=== PATIENT | male | born 1975 | race Caucasian/White ===

== ENCOUNTER 2018-05-22 09:55 | Inpatient (IN) | payer OTHER ==
--- NOTE | 2018-05-14 19:32 | HP ---
HISTORY AND PHYSICAL: DATE OF ADMISSION/SURGERY: 05/22/18 DATE OF OFFICE VISIT: 05/12/18 SURGEON: Jewels Lynne MD * (DICTATED BY CHEKO DUMAS) PROCEDURE: Left total hip arthroplasty. CHIEF COMPLAINT: Left hip pain. HISTORY OF PRESENT ILLNESS: Mr. Faust is a 42-year-old gentleman with complaints of left hip pain. He failed conservative treatment and elected to proceed with a left total hip arthroplasty, which is scheduled for 05/22/18. PAST MEDICAL HISTORY: Psoriatic arthritis, depression, and sleep apnea. PAST SURGICAL HISTORY: Ear tubes. CURRENT MEDICATIONS: 1. Allopurinol 100 mg 2 tablets every day. 2. Hale 5/325 mg every 6 hours as needed. ALLERGIES: To HUMIRA and BEE STING. FAMILY HISTORY: Diabetes. SOCIAL HISTORY: This is a 42-year-old gentleman, lives with his spouse. He does not smoke, use drugs. Uses occasional alcohol. REVIEW OF SYSTEMS: A complete 14-point review of systems is reviewed with the patient. It was all negative or noncontributory. PHYSICAL EXAMINATION GENERAL: He is well developed, well nourished, in on acute distress. VITAL SIGNS: He stands 6 feet 1 inch tall, weighs 266 pounds. His blood pressure 140/82, his heart rate 68. HEENT: Normocephalic, atraumatic. NECK: Supple. No palpable lymph nodes. PULMONARY: The lungs are clear to auscultation bilaterally. CARDIO: Regular rate and rhythm. Strong S1 and S2. ABDOMEN: Soft, nontender, nondistended. MUSCULOSKELETAL: Left lower extremity, the skin is intact. There is no open wounds or abrasions. He walks with an antalgic-type gait favoring his left hip. He has decreased internal and external rotation of the left hip. He has 2 + dorsalis pedis pulse. Intact sensation. His lower extremity muscle group strengths are intact at 5/5. NEUROLOGICAL: He is alert and oriented x3. ASSESSMENT AND PLAN: Mr. Faust is a 42-year-old gentleman with end-stage osteoarthritis of the left hip. He failed conservative treatment and elected to proceed with a left total hip arthroplasty. The surgery is scheduled for with Dr. Lynne. Dr. Lynne discussed the risks and benefits of the surgery at today's visit and all of his questions were answered. He will follow with Dr. Lynne 2 weeks after the surgery. CHEKO DUMAS [id number]/CPS #: [id number] MTDD
[~2018-05-22 09:55] MED LIST: Buffered Lidocaine 0.9% SYRIN* 5 ML/SYR SYRINGE INTRADERM ONE; Sodium Citrate/Citric Acid* 15 ML UDC PO ONE
--- OUTSIDE RECORDS SUMMARY | 2018-05-22 10:01 | XMS REPORT ---
:1975 External Reference #:[id number] Author Organization [facility] Address [address] [facility] [place] [address] Phone [phone] Care Team Providers Name Role Phone Caleb Arredondo MD Primary Care Physician Unavailable Payers Type Date Identification Numbers Payment Provider Subscriber Commercial Policy Number: [id number] [employer] Niall E Govind PayID: [id number] [address] [address] [place] [address] Commercial Expires: 2018 Policy Number: [employer] Niall Campos Govind [id number] PayID: [id number] [address] [address] [place] [address] Problems Date Description Provider Status Onset: 08/11/2015 Psoriatic dactylitis Horacio Arredondo M.D. Active Onset: 08/11/2015 Psoriasis Horacio Arredondo M.D. Active Onset: 08/11/2015 Taking medication Horacio Arredondo M.D. Active Onset: 08/11/2015 Elevated levels of transaminase & lactic Horacio Arredondo M.D. Active acid dehydrogenase Onset: 08/11/2015 Tinnitus, bilateral Horacio Arredondo M.D. 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 Onset: 03/17/2018 Joint pain in right hand Jewels Lynne M.D. 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 [employer] Use Rarely consumes alcohol Smoking Patient is a former smoker quit in 2011 Exercise Type/Frequency Exercises sporadically Allergies, Adverse Reactions, Alerts Date Description Reaction Status Severity Comments 08/11/2015 Bee Sting swelling active Moderate 08/11/2015 Humira multiple infections active Severe 08/11/2015 NKDA inactive Medications Medication Date Status Form Strength Qnty SIG Indications Ordering Provider Allopurinol 05/05 Active Tablets 300mg 90tab 1 by mouth M10.9 s every day [facility], [facility] Simponi 03/07 Active Solution 50mg/0.5M 1.5un on hold until L40.59 Auto-Inje L its after [facility], ct surgery-----inj [facility] ect 50mg subcutaneously once monthly Hydrocodone-Ac 00 Active Tablets 5-325mg Take 1 Tablet Unknown etaminophen /0000 Every 6 Hours as Needed For Pain Allopurinol 03/04 Hx Tablets 100mg take three tabs M10.9 daily [facility], - [facility] 05/05 Bupropion HCL 07/26 Hx Tablets 150mg 30tab 1 by mouth G89.4 Zsofia ER (SR) /2016 ER 12HR s every day [facility], - [facility] 03/16 Sulfasalazine 05/17 Hx Tablets 500mg 90tab take 1 tablet L40.59 s by mouth twice [facility], - a day [facility] 03/16 Allopurinol 05/17 Hx Tablets 300mg 90tab 1 by mouth M10.9 ofi s every day in [facility], - additon to 100 [facility] / mg/day tab Allopurinol 05/17 Hx Tablets 100mg 90tab 1 by mouth M10.9 Zsofi s every day in [facility], - addition to 300 [facility] 07/10 mg tab /2017 Bupropion HCL 03/18 Hx Tablets 75mg 30tab 1 by mouth G89.4 Zsofi s every day [facility], - [facility] 07/26 Duloxetine HCL 12/[address] 30mg 30cap 1 by mouth G89.4 ofi Part s every day [facility], - [facility] 03/18 Allopurinol 10/05 Hx Tablets 300mg 90tab 1 by mouth M10.9 Zsofi s every day [facility], - [facility] 05/17 L40.59 Allopurinol 07/17/2016 - Hx Tablets 100mg 90tabs 1 by mouth every M10.9 Zsofia 10/05/2016 day fro 4 weeks [facility], then get labs [facility] and increase to 2 tabs/day Colchicine 07/17/2016 - Hx Tablets 0.6mg 12tabs take 1 tab at M10.9 Zsofia 03/03/2018 onset of gout [place], attack, 1 tab 1 [facility] hour later, may take 3rd dose 6 after last dose Methotrexate 05/22/2016 - Hx Tablets 2.5mg 36tabs 3 tbs by mouth L40.59 Zsofia 05/17/2017 every week On [place], Hold [facility] Folic Acid 05/22/2016 - Hx Tablets 1mg 90tabs 1 by mouth every Z79.899 Zsofia 05/17/2017 day (hold) [place], [facility] Voltaren 01/04/2016 - Hx Gel 1% 1tubes apply 2 grams to L40.59 ofia 03/16/2018 affected area [place], twice a day, as [facility] SPECIALIST needed for pain Enbrel 10/06/2015 - Hx Solution 50mg/ml 4units inject L40.59 Zsofia Sureclick 03/07/2016 Auto-Injec subcutaneously [place], t 50mg every week [facility] Enbrel 08/11/2015 - Hx Solution 50mg/ml 4units inject L40.59 Horacio [employer] 08/11/2015 Auto-Injec subcutaneously Endo, t 50mg every week M.D. Enbrel 08/11/2015 - Hx Solution 50mg/ml 4units inject L40.59 Horacio [employer] 10/06/2015 Auto-Injec subcutaneously Endo, t 50mg every week M.D. Ibuprofen - Hx Capsules 200mg as needed Unknown 03/16/2018 Trazamine - Hx Misc 50mg take 1/2 by Unknown 10/06/2015 mouth every night at bedtime Trazodone HCL - Hx Tablets 50mg 1 tablet at Unknown 03/16/2018 bedtime as needed Immunizations CPT Code Status Date Vaccine Reaction Lot # [id number] Given 05/17/2017 Influenza Virus Vaccine, no immediate reaction [id number] Quadrivalent, Split, noted Preservative Free [id number] Given 05/22/2016 Influenza Virus Vaccine, No reaction noted [id number] Quadrivalent, Split, Preservative Free [id number] Given 03/07/2016 Pneumococcal Conjugate [id number] Vaccine 13 Valent For Intramuscular Use [id number] Given 08/11/2015 Influenza Virus Vaccine, [id number] Quadrivalent, Split, Preservative Free Vital Signs Date Vital Result Comment 05/08/2018 Height 73 inches 6'1" Weight 267.00 lb Heart Rate 74 /min BP Systolic Sitting 124 mmHg BP Diastolic Sitting 80 mmHg Respiratory Rate 16 /min Body Temperature 97.6 F tympanic O2 % BldC Oximetry 98 % on Ra BMI (Body Mass Index) 35.2 kg/m2 05/05/2018 Height 73 inches 6'1" Weight 265.00 lb Heart Rate 86 /min BP Systolic Sitting 122 mmHg BP Diastolic Sitting 82 mmHg O2 % BldC Oximetry 96 % BMI (Body Mass Index) 35.0 kg/m2 04/11/2018 Height 73 inches 6'1" Weight 250.00 lb Heart Rate 88 /min BP Systolic 134 mmHg BP Diastolic 80 mmHg BMI (Body Mass Index) 33.0 kg/m2 03/17/2018 Height 73 inches 6'1" Weight 257.00 lb BP Systolic 148 mmHg BP Diastolic 82 mmHg Respiratory Rate 18 /min Body Temperature 97.2 F Pain Level 8 BMI (Body Mass Index) 33.9 kg/m2 03/03/2018 Height 73 inches 6'1" Weight 257.00 lb Heart Rate 80 /min BP Systolic Sitting 130 mmHg BP Diastolic Sitting 80 mmHg Pain Level 8 O2 % BldC Oximetry 97 % BMI (Body Mass Index) 33.9 kg/m2 10/08/2017 Weight 277.00 lb Heart Rate 87 /min BP Systolic Sitting 138 mmHg BP Diastolic Sitting 88 mmHg Pain Level 7 O2 % BldC Oximetry 97 % 07/26/2017 Height 73 inches 6'1" Weight 286.00 lb Heart Rate 80 /min BP Systolic Sitting 130 mmHg BP Diastolic Sitting 80 mmHg Respiratory Rate 14 /min Pain Level 6 BMI (Body Mass Index) 37.7 kg/m2 05/17/2017 Height 73 inches 6'1" Weight 287.00 lb Heart Rate 78 /min BP Systolic Sitting 150 mmHg BP Diastolic Sitting 94 mmHg Respiratory Rate 14 /min Pain Level 7 BMI (Body Mass Index) 37.9 kg/m2 03/18/2017 Height 73 inches 6'1" Weight 286.00 lb Heart Rate 86 /min BP Systolic 126 mmHg BP Diastolic 78 mmHg Body Temperature 98.0 F Pain Level 7 O2 % BldC Oximetry 96 % BMI (Body Mass Index) 37.7 kg/m2 12/07/2016 Height 73 inches 6'1" Weight 277.00 lb Heart Rate 81 /min BP Systolic Sitting 140 mmHg BP Diastolic Sitting 83 mmHg Respiratory Rate 14 /min Pain Level 6 BMI (Body Mass Index) 36.5 kg/m2 10/05/2016 Height 73 inches 6'1" Weight 276.00 lb Heart Rate 80 /min BP Systolic Sitting 130 mmHg BP Diastolic Sitting 80 mmHg Respiratory Rate 14 /min Body Temperature 97.6 F Pain Level 7 BMI (Body Mass Index) 36.4 kg/m2 07/17/2016 Height 73 inches 6'1" Weight 280.00 lb Heart Rate 76 /min BP Systolic Sitting 120 mmHg BP Diastolic Sitting 78 mmHg Body Temperature 97.7 F Pain Level 6 BMI (Body Mass Index) 36.9 kg/m2 07/02/2016 Height 73 inches 6'1" Weight 282.00 lb Pain Level 2 BMI (Body Mass Index) 37.2 kg/m2 05/22/2016 Height 73 inches 6'1" Weight 276.00 lb Heart Rate 80 /min BP Systolic Sitting 130 mmHg BP Diastolic Sitting 70 mmHg Respiratory Rate 14 /min Body Temperature 98.2 F Pain Level 7 BMI (Body Mass Index) 36.4 kg/m2 03/26/2016 Height 73 inches 6'1" Weight 279.00 lb Pain Level 2 BMI (Body Mass Index) 36.8 kg/m2 03/07/2016 Height 73 inches 6'1" Weight 279.00 lb Heart Rate 80 /min BP Systolic Sitting 124 mmHg BP Diastolic Sitting 74 mmHg Body Temperature 98.0 F Pain Level 8 BMI (Body Mass Index) 36.8 kg/m2 01/11/2016 Height 73 inches 6'1" Weight 273.00 lb Heart Rate 83 /min BP Systolic 133 mmHg BP Diastolic 85 mmHg BMI (Body Mass Index) 36.0 kg/m2 01/04/2016 Height 72.5 inches 6'0.50" Weight 277.00 lb Heart Rate 80 /min BP Systolic Sitting 156 mmHg BP Diastolic Sitting 90 mmHg Respiratory Rate 14 /min Body Temperature 98.3 F Pain Level 7 BMI (Body Mass Index) 37.0 kg/m2 10/06/2015 Height 72.5 inches 6'0.50" Weight 275.00 lb Heart Rate 84 /min BP Systolic Sitting 160 mmHg BP Diastolic Sitting 90 mmHg Respiratory Rate 14 /min Pain Level 8 BMI (Body Mass Index) 36.8 kg/m2 08/11/2015 Height 72.5 inches 6'0.50" Weight 278.50 lb Heart Rate 80 /min BP Systolic Sitting 142 mmHg BP Diastolic Sitting 92 mmHg Body Temperature 98.1 F Pain Level 6 BMI (Body Mass Index) 37.2 kg/m2 Results Test Date Test Result H/L Range Note Order 05/08/2018 EKG <pending> CBC Auto Diff 03/03/2018 White Blood Count 5.9 10^3/uL 3.5-10.8 Red Blood Count 5.33 10^6/uL 4.00-5.40 Hemoglobin 15.9 g/dL 14.0-18.0 Hematocrit 46 % 42-52 Mean Corpuscular Volume 87 fL 80-94 Mean Corpuscular Hemoglobin 30 pg 27-31 Mean Corpuscular HGB Conc 34 g/dL 31-36 Red Cell Distribution Width 13 % 10.5-15 Platelet Count 138 10^3/uL Low 150-450 Mean Platelet Volume 9.7 um3 7.4-10.4 Abs Neutrophils 3.8 10^3/uL 1.5-7.7 Abs Lymphocytes 1.6 10^3/uL 1.0-4.8 Abs Monocytes 0.4 10^3/uL 0-0.8 Abs Eosinophils 0.1 10^3/uL 0-0.6 Abs Basophils 0 10^3/uL 0-0.2 Abs Nucleated RBC 0.1 10^3/uL Granulocyte % 63.7 % 38-83 Lymphocyte % 26.4 % 25-47 Monocyte % 7.6 % High 0-7 Eosinophil % 1.5 % 0-6 Basophil % 0.8 % 0-2 Nucleated Red Blood Cells % 0.9 Comp Metabolic Panel 03/03/2018 Sodium 141 mmol/L 135-145 Potassium 4.1 mmol/L 3.5-5.0 Chloride 106 mmol/L 101-111 Co2 Carbon Dioxide 26 mmol/L 22-32 Anion Gap 9 mmol/L 2-11 Glucose 97 mg/dL 70-100 Blood Urea Nitrogen 14 mg/dL 6-24 Creatinine 1.10 mg/dL 0.67-1.17 BUN/Creatinine Ratio 12.7 8-20 Calcium 9.2 mg/dL 8.6-10.3 Total Protein 6.8 g/dL 6.4-8.9 Albumin 4.5 g/dL 3.2-5.2 Globulin 2.3 g/dL 2-4 Albumin/Globulin Ratio 2.0 1-3 Total Bilirubin 0.90 mg/dL 0.2-1.0 Alkaline Phosphatase 59 U/L 34-104 Alt 27 U/L 7-52 Ast 20 U/L 13-39 Egfr Non- 72.7 >60 Egfr 88.0 >60 1 Laboratory test finding 03/03/2018 C Reactive Protein 2.25 mg/L <8.01 Erythrocyte Sed Rate 6 mm/Hr 0-14 Uric Acid 7.9 mg/dL High 4.4-7.6 CBC Auto Diff 07/23/2017 White Blood Count 6.2 10^3/uL 3.5-10.8 Red Blood Count 5.35 10^6/uL 4.0-5.4 Hemoglobin 16.2 g/dL 14.0-18.0 Hematocrit 48 % 42-52 Mean Corpuscular Volume 89 fL 80-94 Mean Corpuscular Hemoglobin 30 pg 27-31 Mean Corpuscular HGB Conc 34 g/dL 31-36 Red Cell Distribution Width 14 % 10.5-15 Platelet Count 157 10^3/uL 150-450 Mean Platelet Volume 10 um3 7.4-10.4 Abs Neutrophils 3.7 10^3/uL 1.5-7.7 Abs Lymphocytes 2.0 10^3/uL 1.0-4.8 Abs Monocytes 0.5 10^3/uL 0-0.8 Abs Eosinophils 0 10^3/uL 0-0.6 Abs Basophils 0 10^3/uL 0-0.2 Abs Nucleated RBC 0.01 10^3/uL Granulocyte % 59.7 % 38-83 Lymphocyte % 32.2 % 25-47 Monocyte % 7.6 % 1-9 Eosinophil % 0 % 0-6 Basophil % 0.5 % 0-2 Nucleated Red Blood Cells % 0.2 Comp Metabolic Panel 07/23/2017 Sodium 138 mmol/L 133-145 Potassium 3.8 mmol/L 3.5-5.0 Chloride 103 mmol/L 101-111 Co2 Carbon Dioxide 28 mmol/L 22-32 Anion Gap 7 mmol/L 2-11 Glucose 106 mg/dL High 70-100 Blood Urea Nitrogen 17 mg/dL 6-24 Creatinine 1.13 mg/dL 0.67-1.17 BUN/Creatinine Ratio 15.0 8-20 Calcium 8.8 mg/dL 8.6-10.3 Total Protein 6.7 g/dL 6.4-8.9 Albumin 4.5 g/dL 3.2-5.2 Globulin 2.2 g/dL 2-4 Albumin/Globulin Ratio 2.0 1-3 Total Bilirubin 0.70 mg/dL 0.2-1.0 Alkaline Phosphatase 64 U/L 34-104 Alt 45 U/L 7-52 Ast 30 U/L 13-39 Egfr Non- 70.8 >60 Egfr 91.1 >60 2 Laboratory test finding 07/23/2017 C Reactive Protein 1.67 mg/L < 5.00 3 Erythrocyte Sed Rate 2 mm/Hr 0-14 CBC Auto Diff 05/14/2017 White Blood Count 5.7 10^3/uL 3.5-10.8 Red Blood Count 5.07 10^6/uL 4.0-5.4 Hemoglobin 15.4 g/dL 14.0-18.0 Hematocrit 45 % 42-52 Mean Corpuscular Volume 89 fL 80-94 Mean Corpuscular Hemoglobin 30 pg 27-31 Mean Corpuscular HGB Conc 34 g/dL 31-36 Red Cell Distribution Width 13 % 10.5-15 Platelet Count 150 10^3/uL 150-450 Mean Platelet Volume 9 um3 7.4-10.4 Abs Neutrophils 3.3 10^3/uL 1.5-7.7 Abs Lymphocytes 1.9 10^3/uL 1.0-4.8 Abs Monocytes 0.4 10^3/uL 0-0.8 Abs Eosinophils 0.1 10^3/uL 0-0.6 Abs Basophils 0 10^3/uL 0-0.2 Abs Nucleated RBC 0 10^3/uL Granulocyte % 58.0 % 38-83 Lymphocyte % 32.9 % 25-47 Monocyte % 6.7 % 1-9 Eosinophil % 1.8 % 0-6 Basophil % 0.6 % 0-2 Nucleated Red Blood Cells % 0 Comp Metabolic Panel 05/14/2017 Sodium 139 mmol/L 133-145 Potassium 3.8 mmol/L 3.5-5.0 Chloride 106 mmol/L 101-111 Co2 Carbon Dioxide 27 mmol/L 22-32 Anion Gap 6 mmol/L 2-11 Glucose 73 mg/dL 70-100 Blood Urea Nitrogen 14 mg/dL 6-24 Creatinine 1.09 mg/dL 0.67-1.17 BUN/Creatinine Ratio 12.8 8-20 Calcium 8.9 mg/dL 8.6-10.3 Total Protein 6.6 g/dL 6.4-8.9 Albumin 4.3 g/dL 3.2-5.2 Globulin 2.3 g/dL 2-4 Albumin/Globulin Ratio 1.9 1-3 Total Bilirubin 0.70 mg/dL 0.2-1.0 Alkaline Phosphatase 65 U/L 34-104 Alt 41 U/L 7-52 Ast 26 U/L 13-39 Egfr Non- 73.8 >60 Egfr 95.0 >60 4 Laboratory test finding 05/14/2017 C Reactive Protein 2.89 mg/L < 5.00 5 Erythrocyte Sed Rate 4 mm/Hr 0-14 6 Uric Acid 6.9 mg/dL 4.4-7.6 7 Comp Metabolic Panel 02/21/2017 Sodium 138 mmol/L 133-145 Potassium 4.3 mmol/L 3.5-5.0 Chloride 105 mmol/L 101-111 Co2 Carbon Dioxide 29 mmol/L 22-32 Anion Gap 4 mmol/L 2-11 Glucose 97 mg/dL 70-100 Blood Urea Nitrogen 10 mg/dL 6-24 Creatinine 1.06 mg/dL 0.67-1.17 BUN/Creatinine Ratio 9.4 8-20 Calcium 9.0 mg/dL 8.6-10.3 Total Protein 6.7 g/dL 6.4-8.9 Albumin 4.5 g/dL 3.2-5.2 Globulin 2.2 g/dL 2-4 Albumin/Globulin Ratio 2.0 1-3 Total Bilirubin 0.90 mg/dL 0.2-1.0 Alkaline Phosphatase 73 U/L 34-104 Alt 68 U/L High 7-52 Ast 37 U/L 13-39 Egfr Non- 76.3 >60 Egfr 98.1 >60 8 Laboratory test finding 02/21/2017 Uric Acid 6.6 mg/dL 4.4-7.6 9 C Reactive Protein 1.31 mg/L < 5.00 10 CBC Auto Diff 02/21/2017 White Blood Count 5.7 10^3/uL 3.5-10.8 Red Blood Count 5.35 10^6/uL 4.0-5.4 Hemoglobin 16.7 g/dL 14.0-18.0 Hematocrit 49 % 42-52 Mean Corpuscular Volume 91 fL 80-94 Mean Corpuscular Hemoglobin 31 pg 27-31 Mean Corpuscular HGB Conc 34 g/dL 31-36 Red Cell Distribution Width 14 % 10.5-15 Platelet Count 135 10^3/uL Low 150-450 Mean Platelet Volume 9 um3 7.4-10.4 Abs Neutrophils 3.3 10^3/uL 1.5-7.7 Abs Lymphocytes 1.9 10^3/uL 1.0-4.8 Abs Monocytes 0.4 10^3/uL 0-0.8 Abs Eosinophils 0.1 10^3/uL 0-0.6 Abs Basophils 0 10^3/uL 0-0.2 Abs Nucleated RBC 0.01 10^3/uL Granulocyte % 58.6 % 38-83 Lymphocyte % 32.8 % 25-47 Monocyte % 6.4 % 1-9 Eosinophil % 1.8 % 0-6 Basophil % 0.4 % 0-2 Nucleated Red Blood Cells % 0.2 Laboratory test finding 02/21/2017 Erythrocyte Sed Rate 3 mm/Hr 0-14 11 CBC Auto Diff 11/27/2016 White Blood Count 4.5 10^3/uL 3.5-10.8 Red Blood Count 5.14 10^6/uL 4.0-5.4 Hemoglobin 15.6 g/dL 14.0-18.0 Hematocrit 46 % 42-52 Mean Corpuscular Volume 89 fL 80-94 Mean Corpuscular Hemoglobin 30 pg 27-31 Mean Corpuscular HGB Conc 34 g/dL 31-36 Red Cell Distribution Width 13 % 10.5-15 Platelet Count 132 10^3/uL Low 150-450 Mean Platelet Volume 10 um3 7.4-10.4 Abs Neutrophils 2.7 10^3/uL 1.5-7.7 Abs Lymphocytes 1.4 10^3/uL 1.0-4.8 Abs Monocytes 0.2 10^3/uL 0-0.8 Abs Eosinophils 0.1 10^3/uL 0-0.6 Abs Basophils 0 10^3/uL 0-0.2 Abs Nucleated RBC 0 10^3/uL Granulocyte % 61.0 % 38-83 Lymphocyte % 31.7 % 25-47 Monocyte % 4.9 % 1-9 Eosinophil % 1.7 % 0-6 Basophil % 0.7 % 0-2 Nucleated Red Blood Cells % 0.1 Comp Metabolic Panel 11/27/2016 Sodium 139 mmol/L 133-145 Potassium 3.7 mmol/L 3.5-5.0 Chloride 104 mmol/L 101-111 Co2 Carbon Dioxide 28 mmol/L 22-32 Anion Gap 7 mmol/L 2-11 Glucose 164 mg/dL High 70-100 Blood Urea Nitrogen 9 mg/dL 6-24 Creatinine 1.10 mg/dL 0.67-1.17 BUN/Creatinine Ratio 8.2 8-20 Calcium 8.8 mg/dL 8.6-10.3 Total Protein 6.4 g/dL 6.4-8.9 Albumin 4.2 g/dL 3.2-5.2 Globulin 2.2 g/dL 2-4 Albumin/Globulin Ratio 1.9 1-3 Total Bilirubin 0.90 mg/dL 0.2-1.0 Alkaline Phosphatase 79 U/L 34-104 Alt 71 U/L High 7-52 Ast 37 U/L 13-39 Egfr Non- 73.4 >60 Egfr 94.4 >60 12 Laboratory test finding 11/27/2016 C Reactive Protein 1.32 mg/L < 5.00 13 Erythrocyte Sed Rate 1 mm/Hr 0-14 14 Laboratory test finding 11/27/2016 Uric Acid 5.3 mg/dL 4.4-7.6 15 Laboratory test finding 10/03/2016 Uric Acid 8.1 mg/dL High 4.4-7.6 16 CBC Auto Diff 10/03/2016 White Blood Count 4.7 10^3/uL 3.5-10.8 Red Blood Count 5.15 10^6/uL 4.0-5.4 Hemoglobin 15.8 g/dL 14.0-18.0 Hematocrit 47 % 42-52 Mean Corpuscular Volume 91 fL 80-94 Mean Corpuscular Hemoglobin 31 pg 27-31 Mean Corpuscular HGB Conc 34 g/dL 31-36 Red Cell Distribution Width 13 % 10.5-15 Platelet Count 137 10^3/uL Low 150-450 Mean Platelet Volume 10 um3 7.4-10.4 Abs Neutrophils 3.0 10^3/uL 1.5-7.7 Abs Lymphocytes 1.2 10^3/uL 1.0-4.8 Abs Monocytes 0.2 10^3/uL 0-0.8 Abs Eosinophils 0.1 10^3/uL 0-0.6 Abs Basophils 0 10^3/uL 0-0.2 Abs Nucleated RBC 0 10^3/uL Granulocyte % 64.8 % 38-83 Lymphocyte % 26.7 % 25-47 Monocyte % 5.3 % 1-9 Eosinophil % 2.4 % 0-6 Basophil % 0.8 % 0-2 Nucleated Red Blood Cells % 0.1 Comp Metabolic Panel 10/03/2016 Sodium 137 mmol/L 133-145 Potassium 3.8 mmol/L 3.5-5.0 Chloride 104 mmol/L 101-111 Co2 Carbon Dioxide 28 mmol/L 22-32 Anion Gap 5 mmol/L 2-11 Glucose 150 mg/dL High 70-100 Blood Urea Nitrogen 14 mg/dL 6-24 Creatinine 1.15 mg/dL 0.67-1.17 BUN/Creatinine Ratio 12.2 8-20 Calcium 9.0 mg/dL 8.6-10.3 Total Protein 6.6 g/dL 6.4-8.9 Albumin 4.4 g/dL 3.2-5.2 Globulin 2.2 g/dL 2-4 Albumin/Globulin Ratio 2.0 1-3 Total Bilirubin 0.90 mg/dL 0.2-1.0 Alkaline Phosphatase 76 U/L 34-104 Alt 72 U/L High 7-52 Ast 44 U/L High 13-39 Egfr Non- 69.7 >60 Egfr 89.7 >60 17 Laboratory test finding 10/03/2016 C Reactive Protein 2.96 mg/L < 5.00 18 Erythrocyte Sed Rate 5 mm/Hr 0-14 19 Laboratory test finding 05/22/2016 Uric Acid 8.3 mg/dL High 4.4-7.6 20 CBC Auto Diff 05/22/2016 White Blood Count 4.9 10^3/uL 3.5-10.8 Red Blood Count 5.25 10^6/uL 4.0-5.4 Hemoglobin 16.0 g/dL 14.0-18.0 Hematocrit 47 % 42-52 Mean Corpuscular Volume 90 fL 80-94 Mean Corpuscular Hemoglobin 30 pg 27-31 Mean Corpuscular HGB Conc 34 g/dL 31-36 Red Cell Distribution Width 13 % 10.5-15 Platelet Count 134 10^3/uL Low 150-450 Mean Platelet Volume 9 um3 7.4-10.4 Abs Neutrophils 2.8 10^3/uL 1.5-7.7 Abs Lymphocytes 1.7 10^3/uL 1.0-4.8 Abs Monocytes 0.3 10^3/uL 0-0.8 Abs Eosinophils 0 10^3/uL 0-0.6 Abs Basophils 0 10^3/uL 0-0.2 Abs Nucleated RBC 0.01 10^3/uL Granulocyte % 57.9 % 38-83 Lymphocyte % 34.1 % 25-47 Monocyte % 6.4 % 1-9 Eosinophil % 1.0 % 0-6 Basophil % 0.6 % 0-2 Nucleated Red Blood Cells % 0.1 Comp Metabolic Panel 05/22/2016 Sodium 137 mmol/L 133-145 Potassium 3.8 mmol/L 3.5-5.0 Chloride 105 mmol/L 101-111 Co2 Carbon Dioxide 27 mmol/L 22-32 Anion Gap 5 mmol/L 2-11 Glucose 85 mg/dL 70-100 Blood Urea Nitrogen 14 mg/dL 6-24 Creatinine 1.14 mg/dL 0.67-1.17 BUN/Creatinine Ratio 12.3 8-20 Calcium 8.7 mg/dL 8.6-10.3 Total Protein 6.8 g/dL 6.4-8.9 Albumin 4.3 g/dL 3.2-5.2 Globulin 2.5 g/dL 2-4 Albumin/Globulin Ratio 1.7 1-3 Total Bilirubin 1.00 mg/dL 0.2-1.0 Alkaline Phosphatase 64 U/L 34-104 Alt 61 U/L High 7-52 Ast 31 U/L 13-39 Egfr Non- 70.4 >60 Egfr 90.6 >60 21 Laboratory test finding 05/22/2016 Erythrocyte Sed Rate 1 mm/Hr 0-14 22 C Reactive Protein 2.36 mg/L < 5.00 23 CBC W/Auto Diff 03/02/2016 White Blood Count 4.2 10^3/uL 3.5-10.8 Red Blood Count 5.19 10^6/uL 4.0-5.4 Hemoglobin 15.7 g/dL 14.0-18.0 Hematocrit 46 % 42-52 Mean Corpuscular Volume 90 fL 80-94 Mean Corpuscular Hemoglobin 30 pg 27-31 Mean Corpuscular HGB Conc 34 g/dL 31-36 Red Cell Distribution Width 13 % 10.5-15 Platelet Count 128 10^3/uL Low 150-450 Mean Platelet Volume 9 um3 7.4-10.4 Abs Neutrophils 2.2 10^3/uL 1.5-7.7 Abs Lymphocytes 1.7 10^3/uL 1.0-4.8 Abs Monocytes 0.3 10^3/uL 0-0.8 Abs Eosinophils 0.1 10^3/uL 0-0.6 Abs Basophils 0 10^3/uL 0-0.2 Abs Nucleated RBC 0 10^3/uL Granulocyte % 51.6 % 38-83 Lymphocyte % 39.7 % 25-47 Monocyte % 6.1 % 1-9 Eosinophil % 2.1 % 0-6 Basophil % 0.5 % 0-2 Nucleated Red Blood Cells % 0.1 CMP Panel 03/02/2016 Sodium 139 mmol/L 133-145 Potassium 4.1 mmol/L 3.5-5.0 Chloride 107 mmol/L 101-111 Co2 Carbon Dioxide 26 mmol/L 22-32 Anion Gap 6 mmol/L 2-11 Glucose 128 mg/dL High 70-100 Blood Urea Nitrogen 9 mg/dL 6-24 Creatinine 1.09 mg/dL 0.67-1.17 BUN/Creatinine Ratio 8.3 8-20 Calcium 9.1 mg/dL 8.6-10.3 Total Protein 6.3 g/dL Low 6.4-8.9 Albumin 4.2 g/dL 3.2-5.2 Globulin 2.1 g/dL 2-4 Albumin/Globulin Ratio 2.0 1-3 Total Bilirubin 0.90 mg/dL 0.2-1.0 Alkaline Phosphatase 73 U/L 34-104 Alt 58 U/L High 7-52 Ast 30 U/L 13-39 Egfr Non- 74.2 >60 Egfr 95.4 >60 24 Laboratory test finding 03/02/2016 C Reactive Protein 1.31 mg/L < 5.00 25 Erythrocyte Sed Rate 0 mm/Hr 0-14 26 Comp Metabolic Panel 12/21/2015 Sodium 138 mmol/L 133-145 Potassium 3.6 mmol/L 3.5-5.0 Chloride 103 mmol/L 101-111 Co2 Carbon Dioxide 29 mmol/L 22-32 Anion Gap 6 mmol/L 2-11 Glucose 122 mg/dL High 70-100 Blood Urea Nitrogen 11 mg/dL 6-24 Creatinine 1.21 mg/dL High 0.67-1.17 BUN/Creatinine Ratio 9.1 8-20 Calcium 9.1 mg/dL 8.6-10.3 Total Protein 6.9 g/dL 6.4-8.9 Albumin 4.8 g/dL 3.2-5.2 Globulin 2.1 g/dL 2-4 Albumin/Globulin Ratio 2.3 1-3 Total Bilirubin 1.00 mg/dL 0.2-1.0 Alkaline Phosphatase 66 U/L 34-104 Alt 82 U/L High 7-52 Ast 47 U/L High 13-39 Egfr Non- 65.8 >60 Egfr 84.6 >60 27 Laboratory test finding 12/21/2015 C Reactive Protein 1.79 mg/L < 5.00 28 CBC Auto Diff 12/21/2015 White Blood Count 4.6 10^3/uL 3.5-10.8 Red Blood Count 5.26 10^6/uL 4.0-5.4 Hemoglobin 16.3 g/dL 14.0-18.0 Hematocrit 47 % 42-52 Mean Corpuscular Volume 90 fL 80-94 Mean Corpuscular Hemoglobin 31 pg 27-31 Mean Corpuscular HGB Conc 35 g/dL 31-36 Red Cell Distribution Width 13 % 10.5-15 Platelet Count 145 10^3/uL Low 150-450 Mean Platelet Volume 9 um3 7.4-10.4 Abs Neutrophils 2.7 10^3/uL 1.5-7.7 Abs Lymphocytes 1.6 10^3/uL 1.0-4.8 Abs Monocytes 0.2 10^3/uL 0-0.8 Abs Eosinophils 0.1 10^3/uL 0-0.6 Abs Basophils 0 10^3/uL 0-0.2 Abs Nucleated RBC 0.01 10^3/uL Granulocyte % 58.8 % 38-83 Lymphocyte % 34.3 % 25-47 Monocyte % 5.3 % 1-9 Eosinophil % 1.1 % 0-6 Basophil % 0.5 % 0-2 Nucleated Red Blood Cells % 0.3 Laboratory test finding 12/21/2015 Erythrocyte Sed Rate 2 mm/Hr 0-14 CBC Auto Diff 09/12/2015 White Blood Count 4.8 10^3/uL 3.5-10.8 Red Blood Count 5.15 10^6/uL 4.0-5.4 Hemoglobin 16.1 g/dL 14.0-18.0 Hematocrit 48 % 42-52 Mean Corpuscular Volume 93 fL 80-94 Mean Corpuscular Hemoglobin 31 pg 27-31 Mean Corpuscular HGB Conc 34 g/dL 31-36 Red Cell Distribution Width 13 % 10.5-15 Platelet Count 155 10^3/uL 150-450 Mean Platelet Volume 9 um3 7.4-10.4 Abs Neutrophils 2.4 10^3/uL 1.5-7.7 Abs Lymphocytes 1.9 10^3/uL 1.0-4.8 Abs Monocytes 0.4 10^3/uL 0-0.8 Abs Eosinophils 0.1 10^3/uL 0-0.6 Abs Basophils 0 10^3/uL 0-0.2 Abs Nucleated RBC 0 10^3/uL Granulocyte % 50.1 % 38-83 Lymphocyte % 39.7 % 25-47 Monocyte % 7.3 % 1-9 Eosinophil % 2.0 % 0-6 Basophil % 0.9 % 0-2 Nucleated Red Blood Cells % 0 Comp Metabolic Panel 09/12/2015 Sodium 136 mmol/L 133-145 Potassium 3.7 mmol/L 3.5-5.0 Chloride 104 mmol/L 101-111 Co2 Carbon Dioxide 27 mmol/L 22-32 Anion Gap 5 mmol/L 2-11 Glucose 151 mg/dL High 70-100 Blood Urea Nitrogen 14 mg/dL 6-24 Creatinine 1.06 mg/dL 0.67-1.17 BUN/Creatinine Ratio 13.2 8-20 Calcium 9.1 mg/dL 8.6-10.3 Total Protein 6.9 g/dL 6.4-8.9 Albumin 4.6 g/dL 3.2-5.2 Globulin 2.3 g/dL 2-4 Albumin/Globulin Ratio 2.0 1-3 Total Bilirubin 0.80 mg/dL 0.2-1.0 Alkaline Phosphatase 77 U/L 34-104 Alt 54 U/L High 7-52 Ast 30 U/L 13-39 Egfr Non- 77.0 >60 Egfr 99.0 >60 29 Laboratory test finding 09/12/2015 C Reactive Protein 2.78 mg/L < 5.00 30 Erythrocyte Sed Rate 1 mm/Hr 0-14 CBC Auto Diff 08/11/2015 White Blood Count 5.6 10^3/uL 3.5-10.8 Red Blood Count 5.14 10^6/uL 4.0-5.4 Hemoglobin 16.0 g/dL 14.0-18.0 Hematocrit 48 % 42-52 Mean Corpuscular Volume 93 fL 80-94 Mean Corpuscular Hemoglobin 31 pg 27-31 Mean Corpuscular HGB Conc 33 g/dL 31-36 Red Cell Distribution Width 13 % 10.5-15 Platelet Count 148 10^3/uL Low 150-450 Mean Platelet Volume 10 um3 7.4-10.4 Abs Neutrophils 3.3 10^3/uL 1.5-7.7 Abs Lymphocytes 1.8 10^3/uL 1.0-4.8 Abs Monocytes 0.4 10^3/uL 0-0.8 Abs Eosinophils 0.1 10^3/uL 0-0.6 Abs Basophils 0 10^3/uL 0-0.2 Abs Nucleated RBC 0.01 10^3/uL Granulocyte % 58.2 % 38-83 Lymphocyte % 32.5 % 25-47 Monocyte % 7.6 % 1-9 Eosinophil % 1.3 % 0-6 Basophil % 0.4 % 0-2 Nucleated Red Blood Cells % 0.2 Comp Metabolic Panel 08/11/2015 Sodium 138 mmol/L 133-145 Potassium 3.8 mmol/L 3.5-5.0 Chloride 107 mmol/L 101-111 Co2 Carbon Dioxide 25 mmol/L 22-32 Anion Gap 6 mmol/L 2-11 Glucose 81 mg/dL 70-100 Blood Urea Nitrogen 13 mg/dL 6-24 Creatinine 1.06 mg/dL 0.67-1.17 BUN/Creatinine Ratio 12.3 8-20 Calcium 9.0 mg/dL 8.6-10.3 Total Protein 6.9 g/dL 6.4-8.9 Albumin 4.7 g/dL 3.2-5.2 Globulin 2.2 g/dL 2-4 Albumin/Globulin Ratio 2.1 1-3 Total Bilirubin 0.90 mg/dL 0.2-1.0 Alkaline Phosphatase 74 U/L 34-104 Alt 52 U/L 7-52 Ast 29 U/L 13-39 Egfr Non- 77.0 >60 Egfr 99.0 >60 31 Laboratory test finding 08/11/2015 C Reactive Protein 3.20 mg/L < 5.00 32 Erythrocyte Sed Rate 4 mm/Hr 0-14 Cytoplasmic Neutrophilic AB 08/11/2015 C-Anca Negative Negative P-Anca Negative Negative 33 Laboratory test finding 08/11/2015 Elyssa Screen Negative Negative 34 Quantiferon Gold TB 08/11/2015 M tuberculosis by Negative Negative Quantiferon Tuberculosis Antigen Value 0.01 IU/mL 35 Hepatitis Acute Panel 08/11/2015 Hepatitis C Antibody Nonreactive Nonreactive Hepatitis A AB Igm Nonreactive Nonreactive Hepatitis B Core AB Igm Nonreactive Nonreactive Hepatitis B Surface Ag Nonreactive Nonreactive Laboratory test finding 08/11/2015 Rheumatoid Factor <15 IU/mL <15 36 Cyclic Citrullinated Pep Igg <15.6 U 37 Uric Acid 7.9 mg/dL High 4.4-7.6 Hla B27 08/11/2015 Hla B27 Negative 38 Hla B27 Interp See Comment 39 1 Because ethnic data is not always readily available, this report includes an eGFR for both -Americans and non- Americans. The National Kidney Disease Education Program (NKDEP) does not endorse the use of the MDRD equation for patients that are not between the ages of 18 and 70, are , have extremes of body size, muscle mass, or nutritional status, or are non- or non-. According to the National Kidney Foundation, irrespective of diagnosis, the stage of the disease is based on the level of kidney function: Stage Description GFR(mL/min/1.73 m(2)) 1 Kidney damage with normal or decreased GFR 90 2 Kidney damage with mild decrease in GFR 60-89 3 Moderate decrease in GFR 30-59 4 Severe decrease in GFR 15-29 5 Kidney failure <15 (or dialysis) 2 Because ethnic data is not always readily available, this report includes an eGFR for both -Americans and non- Americans. The National Kidney Disease Education Program (NKDEP) does not endorse the use of the MDRD equation for patients that are not between the ages of 18 and 70, are , have extremes of body size, muscle mass, or nutritional status, or are non- or non-. According to the National Kidney Foundation, irrespective of diagnosis, the stage of the disease is based on the level of kidney function: Stage Description GFR(mL/min/1.73 m(2)) 1 Kidney damage with normal or decreased GFR 90 2 Kidney damage with mild decrease in GFR 60-89 3 Moderate decrease in GFR 30-59 4 Severe decrease in GFR 15-29 5 Kidney failure <15 (or dialysis) 3 Acute inflammation: >10.00 4 Because ethnic data is not always readily available, this report includes an eGFR for both -Americans and non- Americans. The National Kidney Disease Education Program (NKDEP) does not endorse the use of the MDRD equation for patients that are not between the ages of 18 and 70, are , have extremes of body size, muscle mass, or nutritional status, or are non- or non-. According to the National Kidney Foundation, irrespective of diagnosis, the stage of the disease is based on the level of kidney function: Stage Description GFR(mL/min/1.73 m(2)) 1 Kidney damage with normal or decreased GFR 90 2 Kidney damage with mild decrease in GFR 60-89 3 Moderate decrease in GFR 30-59 4 Severe decrease in GFR 15-29 5 Kidney failure <15 (or dialysis) 5 Acute inflammation: >10.00 6 S/O ENTERED 11/27/16 EXPIRES 05/29/17 Q 4 WEEKS STANDING ORDER 7 S/O ENTERED 11/27/16 EXPIRES 05/29/17 Q 4 WEEKS STANDING ORDER 8 Because ethnic data is not always readily available, this report includes an eGFR for both -Americans and non- Americans. The National Kidney Disease Education Program (NKDEP) does not endorse the use of the MDRD equation for patients that are not between the ages of 18 and 70, are , have extremes of body size, muscle mass, or nutritional status, or are non- or non-. According to the National Kidney Foundation, irrespective of diagnosis, the stage of the disease is based on the level of kidney function: Stage Description GFR(mL/min/1.73 m(2)) 1 Kidney damage with normal or decreased GFR 90 2 Kidney damage with mild decrease in GFR 60-89 3 Moderate decrease in GFR 30-59 4 Severe decrease in GFR 15-29 5 Kidney failure <15 (or dialysis) 9 S/O ENTERED 11/27/16 EXPIRES 05/29/17 Q 4 WEEKS STANDING ORDER 10 Acute inflammation: >10.00 11 S/O ENTERED 11/27/16 EXPIRES 05/29/17 Q 4 WEEKS STANDING ORDER 12 Because ethnic data is not always readily available, this report includes an eGFR for both -Americans and non- Americans. The National Kidney Disease Education Program (NKDEP) does not endorse the use of the MDRD equation for patients that are not between the ages of 18 and 70, are , have extremes of body size, muscle mass, or nutritional status, or are non- or non-. According to the National Kidney Foundation, irrespective of diagnosis, the stage of the disease is based on the level of kidney function: Stage Description GFR(mL/min/1.73 m(2)) 1 Kidney damage with normal or decreased GFR 90 2 Kidney damage with mild decrease in GFR 60-89 3 Moderate decrease in GFR 30-59 4 Severe decrease in GFR 15-29 5 Kidney failure <15 (or dialysis) 13 Acute inflammation: >10.00 14 standing order q 4 weeks 15 1x order q 4 weeks 16 PRN VALID 05/22/16-11/19/16 Q 4 WEEKS 17 Because ethnic data is not always readily available, this report includes an eGFR for both -Americans and non- Americans. The National Kidney Disease Education Program (NKDEP) does not endorse the use of the MDRD equation for patients that are not between the ages of 18 and 70, are , have extremes of body size, muscle mass, or nutritional status, or are non- or non-. According to the National Kidney Foundation, irrespective of diagnosis, the stage of the disease is based on the level of kidney function: Stage Description GFR(mL/min/1.73 m(2)) 1 Kidney damage with normal or decreased GFR 90 2 Kidney damage with mild decrease in GFR 60-89 3 Moderate decrease in GFR 30-59 4 Severe decrease in GFR 15-29 5 Kidney failure <15 (or dialysis) 18 Acute inflammation: >10.00 19 PRN VALID 05/22/16-11/19/16 Q 4 WEEKS 20 standing order q 4 weeks 21 Because ethnic data is not always readily available, this report includes an eGFR for both -Americans and non- Americans. The National Kidney Disease Education Program (NKDEP) does not endorse the use of the MDRD equation for patients that are not between the ages of 18 and 70, are , have extremes of body size, muscle mass, or nutritional status, or are non- or non-. According to the National Kidney Foundation, irrespective of diagnosis, the stage of the disease is based on the level of kidney function: Stage Description GFR(mL/min/1.73 m(2)) 1 Kidney damage with normal or decreased GFR 90 2 Kidney damage with mild decrease in GFR 60-89 3 Moderate decrease in GFR 30-59 4 Severe decrease in GFR 15-29 5 Kidney failure <15 (or dialysis) 22 standing order q 4 weeks 23 Acute inflammation: >10.00 24 Because ethnic data is not always readily available, this report includes an eGFR for both -Americans and non- Americans. The National Kidney Disease Education Program (NKDEP) does not endorse the use of the MDRD equation for patients that are not between the ages of 18 and 70, are , have extremes of body size, muscle mass, or nutritional status, or are non- or non-. According to the National Kidney Foundation, irrespective of diagnosis, the stage of the disease is based on the level of kidney function: Stage Description GFR(mL/min/1.73 m(2)) 1 Kidney damage with normal or decreased GFR 90 2 Kidney damage with mild decrease in GFR 60-89 3 Moderate decrease in GFR 30-59 4 Severe decrease in GFR 15-29 5 Kidney failure <15 (or dialysis) 25 Acute inflammation: >10.00 26 PRN VALID 12/22/15-10/28/16 Q 4 WEEKS 27 Because ethnic data is not always readily available, this report includes an eGFR for both -Americans and non- Americans. The National Kidney Disease Education Program (NKDEP) does not endorse the use of the MDRD equation for patients that are not between the ages of 18 and 70, are , have extremes of body size, muscle mass, or nutritional status, or are non- or non-. According to the National Kidney Foundation, irrespective of diagnosis, the stage of the disease is based on the level of kidney function: Stage Description GFR(mL/min/1.73 m(2)) 1 Kidney damage with normal or decreased GFR 90 2 Kidney damage with mild decrease in GFR 60-89 3 Moderate decrease in GFR 30-59 4 Severe decrease in GFR 15-29 5 Kidney failure <15 (or dialysis) 28 Acute inflammation: >10.00 29 Because ethnic data is not always readily available, this report includes an eGFR for both -Americans and non- Americans. The National Kidney Disease Education Program (NKDEP) does not endorse the use of the MDRD equation for patients that are not between the ages of 18 and 70, are , have extremes of body size, muscle mass, or nutritional status, or are non- or non-. According to the National Kidney Foundation, irrespective of diagnosis, the stage of the disease is based on the level of kidney function: Stage Description GFR(mL/min/1.73 m(2)) 1 Kidney damage with normal or decreased GFR 90 2 Kidney damage with mild decrease in GFR 60-89 3 Moderate decrease in GFR 30-59 4 Severe decrease in GFR 15-29 5 Kidney failure <15 (or dialysis) 30 Acute inflammation: >10.00 31 Because ethnic data is not always readily available, this report includes an eGFR for both -Americans and non- Americans. The National Kidney Disease Education Program (NKDEP) does not endorse the use of the MDRD equation for patients that are not between the ages of 18 and 70, are , have extremes of body size, muscle mass, or nutritional status, or are non- or non-. According to the National Kidney Foundation, irrespective of diagnosis, the stage of the disease is based on the level of kidney function: Stage Description GFR(mL/min/1.73 m(2)) 1 Kidney damage with normal or decreased GFR 90 2 Kidney damage with mild decrease in GFR 60-89 3 Moderate decrease in GFR 30-59 4 Severe decrease in GFR 15-29 5 Kidney failure <15 (or dialysis) 32 Acute inflammation: >10.00 33 Negative for cANCA and pANCA patterns by immunofluorescence. Test Performed by: [place] [address] Miner: Al Leo II, M.D., Ph.D. 34 The above ELYSSA screen is designed for the detection of antibodies to extractable nuclear antigen (ELYSSA) in human serum. It is a combination test for the detection of antibodies to MOPPER, Sm, SS-A (Ro), and SS-B (La) nuclear antigens. 35 ADDITIONAL INFORMATION This is a qualitative test. The TB antigen IU/mL value is required for documentation on certain government reporting forms (e.g., Form I-693), but this value should not be used to monitor disease progression or response to therapy. Diagnosing or excluding tuberculosis disease, and assessing the probability of LTBI, require a combination of epidemiological, historical, medical, and diagnostic findings that should be taken into account when interpreting QuantiFERON-TB results. Test Performed by: [place] [address] Miner: Al Leo II, M.D., Ph.D. 36 Test Performed by: [place] [address] Miner: Al Leo II, M.D., Ph.D. 37 REFERENCE VALUE <20.0 (Negative) Test Performed by: [place] [address] Miner: Al Leo II, M.D., Ph.D. 38 REFERENCE VALUE Not Applicable 39 RESULT: HLA-B27 antigen was not detected. ADDITIONAL INFORMATION Method: Flow Cytometry Performing Laboratory CLIA# [id number] Test Performed by: [place] [address] Miner: Al Leo II, M.D., Ph.D. Procedures Date CPT Code Description Status 05/08/2018 21634 EKG Tracing & Interpretation Completed Encounters Type Date Location Provider CPT E/M Dx Office Visit 05/05/2018 [facility] [place] [facility] 26877 L40.59 11:30a Of Federica L40.0 M16.12 M10.9 Z79.899 Office Visit 04/11/2018 9:30a [facility] [place] Lynne M.D. 61210 M25.551 [facility] M25.552 M16.0 L40.0 L40.59 M16.12 Office Visit 03/17/2018 11:00a [facility] [place] Lynne M.D. 62640 M25.551 [facility] M25.552 M16.0 M25.541 R22.31 Office Visit 03/03/2018 10:30a [facility] Of Angela Byrd 08318 L40.59 Federica MELENDEZ L40.0 M25.559 G89.4 M10.9 Z79.899 M25.551 M25.552 Office Visit 10/08/2017 11:00a [facility] [place] [facility] 01602 L40.59 Of Creative Art Therapist L40.0 G89.4 Z13.1 Z13.220 K13.21 M10.9 Z79.899 Office Visit 07/26/2017 8:00a [facility] Zsofia Carson, MGMT SPECIALIST 62260 L40.59 Of [facility] Therapist L40.0 M25.541 K13.21 M10.9 Z79.899 G89.4 Office Visit 05/17/2017 11:00a [facility] JAVAD ChampionP 11257 L40.59 Of Creative Art Therapist L40.0 M16.0 Z79.899 E79.0 K13.21 Z23 Office Visit 03/18/2017 2:00p [facility] Of Angela Byrd 88434 L40.59 Creative Art Therapist-[place] MGMT SPECIALIST L40.0 M10.9 G47.33 G89.4 R79.89 Z79.899 E66.9 Office Visit 12/07/2016 2:30p [facility] [place] 38038 L40.59 Of Creative Art Therapist L40.0 M10.9 G89.4 R79.89 Z79.899 Office Visit 10/05/2016 3:00p [facility] Angela Byrd MGMT SPECIALIST 73118 L40.59 Of Creative Art Therapist L40.0 M10.9 M25.561 R79.89 Z79.899 Office Visit 07/17/2016 9:00a [facility] Angela Byrd MGMT SPECIALIST 70807 L40.59 Of Creative Art Therapist L40.0 M10.9 Z79.899 E66.9 Office Visit 07/02/2016 2:45p [facility] Of Dashawn Walker M.D. 85544 L40.59 C.M[facility]A. Office Visit 05/22/2016 10:00a [facility] Of Angela Byrd 91274 L40.59 Creative Art Therapist MGMT SPECIALIST L40.0 M25.551 M25.552 E66.9 E79.0 Z79.899 Z23 Office Visit 03/26/2016 1:30p [facility] Of Dashawn Walker M.D. 62078 M25.551 C.M.A. M13.852 Office Visit 03/07/2016 11:00a [facility] Angela Byrd MGMT SPECIALIST 22166 L40.59 Of Creative Art Therapist L40.0 M25.552 M25.551 R79.89 D69.6 E66.9 Z79.899 Z23 Office Visit 01/11/2016 9:00a [facility] Of Dashawn Walker M.D. 00288 M13.852 C.M.A. M25.552 Office Visit 01/04/2016 11:00a [facility] [place] 73013 L40.59 Of [facility] L40.0 R74.0 M25.559 Z79.899 E66.9 M25.552 M25.551 Office Visit 10/06/2015 10:00a [facility] Horacio Arredondo, 97019 L40.59 Of Erika López L40.0 Z79.899 R74.0 Office Visit 08/11/2015 11:00a [facility] Horacio Arredondo, 64935 L40.59 Of [facility] Rene Z23 L40.0 Z79.899 R74.0 H93.13 Plan of Care Future Appointment(s):07/07/2018 9:00 am - [place] Champion at [facility]05/22/2018 11:30 am - Maximiliano Jones PA-C at [facility]05/22/2018 11:30 am - CHEKO Castle at [facility]05/22/2018 11:30 am - Jewels Lynne M.D. at [facility]05/12/2018 9:30 am - Jewels Lynne M.D. at [facility]05/08/2018 - Caleb Arredondo M.D.Z01.818 Encounter for other preprocedural examinationComments:Patient asymptomatic from cardiac and pulmonary standpoint. IsCleared for above proposed surgery with customary perioperative monitoring.Symponi on hold per rheumatology . Should not take aspirin andor OTC medications like ibuprofen for 1 week prior to surgery.Follow up:as needed
--- OUTSIDE RECORDS SUMMARY | 2018-05-22 10:01 | XMS REPORT ---
:1975 External Reference #:[id number] Author Organization [facility] Address [address] [place] [address] Phone [phone] Care Team Providers Name Role Phone Caleb Arredondo MD Primary Care Physician Unavailable Payers Type Date Identification Numbers Payment Provider Subscriber Commercial Policy Number: [id number] [employer] Niall E Govind PayID: [id number] [address] [address] [place] [address] Commercial Expires: 2018 Policy Number: [place] Medicaid Niall Campos Govind [id number] PayID: [id number] [address] [address] [place] [address] Problems Date Description Provider Status Onset: 08/11/2015 [...] Type Date Description Comments 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 [employer] Use Rarely consumes alcohol Smoking [...] by mouth M10.9 s every day [facility], [facility] Simponi 03/07 Active Solution 50mg/0.5M 1.5un on hold until L40.59 Auto-Inje L its after [facility], ct surgery-----inj JET ENGINE MECHANIC ect 50mg subcutaneously once monthly Hydrocodone-Ac 00 Active Tablets 5-325mg Take 1 Tablet Unknown etaminophen /0000 Every 6 Hours as Needed For Pain Allopurinol 03/04 Hx Tablets 100mg take three tabs M10.9 daily [facility], - JET ENGINE MECHANIC 05/05 Bupropion HCL 07/26 Hx Tablets 150mg 30tab 1 by mouth G89.4 Zsofia ER (SR) /2016 ER 12HR s every day [facility], - JET ENGINE MECHANIC 03/16 Sulfasalazine 05/17 Hx Tablets 500mg 90tab take 1 tablet L40.59 s by mouth twice [facility], - a day JET ENGINE MECHANIC 03/16 Allopurinol 05/17 Hx Tablets 300mg 90tab 1 by mouth M10.9 ofi s every day in [facility], - additon to 100 JET ENGINE MECHANIC / mg/day tab Allopurinol 05/17 Hx Tablets 100mg 90tab 1 by mouth M10.9 Zsofi s every day in [facility], - addition to 300 JET ENGINE MECHANIC 07/10 mg tab /2017 Bupropion HCL 03/18 Hx Tablets 75mg 30tab 1 by mouth G89.4 Zsofi s every day [facility], - JET ENGINE MECHANIC 07/26 Duloxetine HCL 12/[address] 30mg 30cap 1 by mouth G89.4 ofi Part s every day [facility], - JET ENGINE MECHANIC 03/18 Allopurinol 10/05 Hx Tablets 300mg 90tab 1 by mouth M10.9 Zsofi s every day [facility], - JET ENGINE MECHANIC 05/17 L40.59 Allopurinol 07/17/2016 - Hx Tablets 100mg 90tabs 1 by mouth every M10.9 Zsofia 10/05/2016 day fro 4 weeks [place], then get labs JET ENGINE MECHANIC and increase to 2 tabs/day Colchicine 07/17/2016 - Hx Tablets 0.6mg 12tabs take 1 tab at M10.9 Zsofia 03/03/2018 onset of gout [place], attack, 1 tab 1 JET ENGINE MECHANIC hour later, may take 3rd dose 6 after last dose Methotrexate 05/22/2016 - Hx Tablets 2.5mg 36tabs 3 tbs by mouth L40.59 Zsofia 05/17/2017 every week On [place], Hold JET ENGINE MECHANIC Folic Acid 05/22/2016 - Hx Tablets 1mg 90tabs 1 by mouth every Z79.899 Zsofia 05/17/2017 day (hold) [place], JET ENGINE MECHANIC Voltaren 01/04/2016 - Hx Gel 1% 1tubes apply 2 grams to L40.59 ofia 03/16/2018 affected area [place], twice a day, as JET ENGINE MECHANIC needed for pain Enbrel 10/06/2015 - Hx Solution 50mg/ml 4units inject L40.59 Zsofia Sureclick 03/07/2016 Auto-Injec subcutaneously [place], t 50mg every week JET ENGINE MECHANIC Enbrel 08/11/2015 - Hx Solution 50mg/ml 4units [...] Code Status Date Vaccine Reaction Lot # 58753 Given 05/17/2017 Influenza Virus Vaccine, no immediate reaction [id number] Quadrivalent, Split, noted Preservative Free 18331 Given 05/22/2016 Influenza Virus Vaccine, No reaction noted [id number] Quadrivalent, Split, Preservative Free 19836 Given 03/07/2016 Pneumococcal Conjugate [id number] Vaccine 13 Valent For Intramuscular Use 23705 Given 08/11/2015 Influenza Virus Vaccine, x7yr2 Quadrivalent, Split, Preservative Free Vital Signs Date Vital Result Comment 05/12/2018 Height 73 inches 6'1" Weight 266.00 lb Heart Rate 68 /min BP Systolic 140 mmHg BP Diastolic 82 mmHg BMI (Body Mass Index) 35.1 kg/m2 05/08/2018 Height 73 inches 6'1" Weight 267.00 [...] 18 Acute inflammation: >10.00 19 PRN VALID 05/22/-11/19/16 Q 4 WEEKS 20 standing order q [...] 25 Acute inflammation: >10.00 26 PRN VALID 12/22/15-06/22/16 Q 4 WEEKS 27 Because ethnic data [...] pANCA patterns by immunofluorescence. Test Performed by: [place] [address] Water Softener Installer: Al Leo II, M.D., Ph.D. 34 The above ELYSSA screen is designed for the detection of antibodies to extractable nuclear antigen (ELYSSA) in human serum. It is a combination test for the detection of antibodies to PIT SHOVEL OPERATOR, Sm, SS-A (Ro), and SS-B (La) nuclear [...] when interpreting QuantiFERON-TB results. Test Performed by: [place] [address] Water Softener Installer: Al Leo II, M.D., Ph.D. 36 Test Performed by: [place] [address] Water Softener Installer: Al Leo II, M.D., Ph.D. 37 REFERENCE VALUE <20.0 (Negative) Test Performed by: [facility] - [address] [address] Water Softener Installer: Al Leo II, M.D., Ph.D. 38 REFERENCE VALUE Not Applicable 39 RESULT: HLA-B27 antigen was not detected. ADDITIONAL INFORMATION Method: Flow Cytometry Performing Laboratory CLIA# [id number] Test Performed by: [place] [id number] Water Softener Installer: Al Leo II, M.D., Ph.D. Procedures Date CPT Code Description Status 05/08/2018 62202 EKG Tracing & Interpretation Completed Encounters Type Date Location Provider CPT E/M Dx Office Visit 05/05/2018 [facility] [place] 28596 L40.59 11:30a Of Federica L40.0 M16.12 M10.9 Z79.899 Office Visit 04/11/2018 9:30a [facility] Of Jewels Lynne M.D. 46305 M25.551 [facility] M25.552 M16.0 L40.0 L40.59 M16.12 Office Visit 03/17/2018 11:00a [facility] Of Jew[place] Lynne M.D. 21623 M25.551 C.[facility]A. M25.552 M16.0 M25.541 R22.31 Office Visit 03/03/2018 10:30a [facility] Of Angela Byrd 407[address] L40.59 Federica MELENDEZ L40.0 M25.559 G89.4 M10.9 Z79.899 M25.551 M25.552 Office Visit 10/08/2017 11:00a [facility] [place] 94883 L40.59 Of [place] L40.0 G89.4 Z13.1 Z13.220 K13.21 M10.9 Z79.899 Office Visit 07/26/2017 8:00a [facility] Angela [place]rd[place] [address]190 L40.59 Of [place] L40.0 M25.541 K13.21 M10.9 Z79.899 G89.4 Office Visit 05/17/2017 11:00a [facility] Ramanjosejania Rodriguessukumar JET ENGINE MECHANIC 52971 L40.59 Of [place] L40.0 M16.0 Z79.899 E79.0 K13.21 Z23 Office Visit 03/18/2017 2:00p [facility] Of Ramanjosejania [place] 232[address] L40.59 [place] JET ENGINE MECHANIC L40.0 M10.9 G47.33 G89.4 R79.89 Z79.899 E66.9 Office Visit 12/07/2016 2:30p [facility] [place] [address] L40.59 Of [place] L40.0 M10.9 G89.4 R79.89 Z79.899 Office Visit 10/05/2016 3:00p [facility] Services Ramanjosejania RodriguesAL patino 26096 L40.59 Of [place] L40.0 M10.9 M25.561 R79.89 Z79.899 Office Visit 07/17/2016 9:00a [facility] Services RamanAL Gross 85792 L40.59 Of [place] L40.0 M10.9 Z79.899 E66.9 Office Visit 07/02/2016 2:45p [facility] Of Dashawn Walker M.D. 63611 L40.59 C.M.A. Office Visit 05/22/2016 10:00a [facility] Of [place] [address]6065 L40.59 [place] JET ENGINE MECHANIC L40.0 M25.551 M25.552 E66.9 E79.0 Z79.899 Z23 Office Visit 03/26/2016 1:30p [facility] Of Dashawn Walker M.D. 23190 M25.551 C.M.A. M13.852 Office Visit 03/07/2016 11:00a [facility] [place] [address]6982 L40.59 Of [facility] L40.0 M25.552 M25.551 R79.89 D69.6 E66.9 Z79.899 Z23 Office Visit 01/11/2016 9:00a [facility] Of Dashawn Walker M.D. 03189 M13.852 C.M.A. M25.552 Office Visit 01/04/2016 11:00a [facility] [place] 61582 L40.59 Of [facility] L40.0 R74.0 M25.559 Z79.899 E66.9 M25.552 M25.551 Office Visit 10/06/2015 10:00a [facility] Services Horacio Endo, 46613 L40.59 Of [facility] Kishore.DKrupa L40.0 Z79.899 R74.0 Office Visit 08/11/2015 11:00a [facility] Horacio Endo, 38808 L40.59 Of [facility] Rene Z23 L40.0 Z79.899 R74.0 H93.13 Plan of Care Future Appointment(s):06/02/2018 8:45 am - Jewels Lynne M.D. at [facility]07/07/2018 9:00 am - [place] at [facility]-Wovmgudcl16/27/2018 11:30 am - Maximiliano Jones PA-C at [facility]05/22/2018 11:30 am - CHEKO Castle at [facility]05/22/2018 11:30 am - Jewels Lynne M.D. at [facility]05/12/2018 - Jewels Lynne M.D.M16.0 Bilateral primary osteoarthritis of hipNew Therapy:Physical TherapyFollow up:Follow up: 2 weeks after gbvvxuuS36.552 Pain in left hip
--- OUTSIDE RECORDS SUMMARY | 2018-05-22 10:02 | XMS REPORT ---
:1975 External Reference #:[id number] Author Organization [employer] Address [address] [address] Phone [phone] Care Team Providers Name Role Phone Caleb Arreodndo MD Primary Care Physician Unavailable Payers Type Date Identification Numbers Payment Provider Subscriber Commercial Policy Number: [id number] [employer] Niall Faust PayID: [id number] [address] [address] [place] [address] Commercial Expires: 2018 Policy Number: [place] Medicaid Niall Andres Govind [id number] PayID: [id number] [address] [address] [place] [address] Problems Date Description Provider Status Onset: 08/11/2015 Psoriatic dactylitis Horacio Arredondo M.D. Active Onset: 08/11/2015 Psoriasis Horacio Arredondo M.D. Active Onset: 08/11/2015 Taking medication Horacio Arredondo M.D. Active Onset: 08/11/2015 Elevated levels of transaminase & lactic Horacio Arredondo M.D. Active acid dehydrogenase Onset: 08/11/2015 Tinnitus, bilateral Horacio Arredondo M.D. Active Onset: 03/17/2018 Joint pain in right hand Jewels Lynne M.D. 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 [employer] Use Rarely consumes alcohol [...] by mouth M10.9 s every day [facility], [facility] Simponi 03/07 Active Solution 50mg/0.5M 1.5un on hold until L40.59 Auto-Inje L its after [facility], ct surgery-----inj KENNEL OPERATOR ect 50mg subcutaneously once monthly Hydrocodone-Ac 00 Active Tablets 5-325mg Take 1 Tablet Unknown etaminophen /0000 Every 6 Hours as Needed For Pain Allopurinol 03/04 Hx Tablets 100mg take three tabs M10.9 daily [facility], - KENNEL OPERATOR 05/05 Bupropion HCL 07/26 Hx Tablets 150mg 30tab 1 by mouth G89.4 Zsofia ER (SR) /2016 ER 12HR s every day [facility], - KENNEL OPERATOR 03/16 Sulfasalazine 05/17 Hx Tablets 500mg 90tab take 1 tablet L40.59 s by mouth twice [facility], - a day KENNEL OPERATOR 03/16 Allopurinol 05/17 Hx Tablets 300mg 90tab 1 by mouth M10.9 ofi s every day in [facility], - additon to 100 KENNEL OPERATOR / mg/day tab Allopurinol 05/17 Hx Tablets 100mg 90tab 1 by mouth M10.9 Zsofi s every day in [facility], - addition to 300 KENNEL OPERATOR 07/10 mg tab /2017 Bupropion HCL 03/18 Hx Tablets 75mg 30tab 1 by mouth G89.4 Zsofi s every day [facility], - KENNEL OPERATOR 07/26 Duloxetine HCL 12/[address] 30mg 30cap 1 by mouth G89.4 ofi Part s every day [facility], - KENNEL OPERATOR 03/18 Allopurinol 10/05 Hx Tablets 300mg 90tab 1 by mouth M10.9 Zsofi s every day [facility], - KENNEL OPERATOR 05/17 L40.59 Allopurinol 07/17/2016 - Hx Tablets 100mg 90tabs 1 by mouth every M10.9 Zsofia 10/05/2016 day fro 4 weeks [place], then get labs KENNEL OPERATOR and increase to 2 tabs/day Colchicine 07/17/2016 - Hx Tablets 0.6mg 12tabs take 1 tab at M10.9 Zsofia 03/03/2018 onset of gout [place], attack, 1 tab 1 KENNEL OPERATOR hour later, may take 3rd dose 6 after last dose Methotrexate 05/22/2016 - Hx Tablets 2.5mg 36tabs 3 tbs by mouth L40.59 Zsofia 05/17/2017 every week On [place], Hold KENNEL OPERATOR Folic Acid 05/22/2016 - Hx Tablets 1mg 90tabs 1 by mouth every Z79.899 Zsofia 05/17/2017 day (hold) [place], KENNEL OPERATOR Voltaren 01/04/2016 - Hx Gel 1% 1tubes apply 2 grams to L40.59 ofia 03/16/2018 affected area [place], twice a day, as KENNEL OPERATOR needed for pain Enbrel 10/06/2015 - Hx Solution 50mg/ml 4units inject L40.59 Zsofia Sureclick 03/07/2016 Auto-Injec subcutaneously [place], t 50mg every week KENNEL OPERATOR Enbrel 08/11/2015 - Hx Solution 50mg/ml 4units [...] Code Status Date Vaccine Reaction Lot # 37563 Given 05/17/2017 Influenza Virus Vaccine, no immediate reaction [id number] Quadrivalent, Split, noted Preservative Free 05446 Given 05/22/2016 Influenza Virus Vaccine, No reaction noted [id number] Quadrivalent, Split, Preservative Free 47822 Given 03/07/2016 Pneumococcal Conjugate [id number] Vaccine 13 Valent For Intramuscular Use 60560 Given 08/11/2015 Influenza Virus Vaccine, x7yr2 Quadrivalent, Split, Preservative Free Vital Signs Date Vital Result Comment 05/05/2018 Height 73 inches 6'1" Weight 265.00 [...] Test Date Test Result H/L Range Note CBC Auto Diff 03/03/2018 White Blood Count [...] 0-2 Nucleated Red Blood Cells % 0.1 Laboratory test finding 10/03/2016 C Reactive Protein 2.96 mg/L < 5.00 17 Erythrocyte Sed Rate 5 mm/Hr 0-14 18 Comp Metabolic Panel 10/03/2016 Sodium 137 mmol/L [...] Egfr Non- 69.7 >60 Egfr 89.7 >60 19 Laboratory test finding 05/22/2016 Erythrocyte Sed Rate 1 mm/Hr 0-14 20 C Reactive Protein 2.36 mg/L < 5.00 21 Comp Metabolic Panel 05/22/2016 Sodium 137 mmol/L [...] Egfr Non- 70.4 >60 Egfr 90.6 >60 22 CBC Auto Diff 05/22/2016 White Blood Count [...] 0-2 Nucleated Red Blood Cells % 0.1 Laboratory test finding 05/22/2016 Uric Acid 8.3 mg/dL High 4.4-7.6 23 Laboratory test finding 03/02/2016 C Reactive Protein 1.31 mg/L < 5.00 24 Erythrocyte Sed Rate 0 mm/Hr 0-14 25 CMP Panel 03/02/2016 Sodium 139 mmol/L 133-145 [...] Egfr Non- 74.2 >60 Egfr 95.4 >60 26 CBC W/Auto Diff 03/02/2016 White Blood Count [...] 0-2 Nucleated Red Blood Cells % 0.1 Laboratory test finding 12/21/2015 Erythrocyte Sed Rate 2 mm/Hr 0-14 CBC Auto Diff 12/21/2015 White Blood Count [...] Cells % 0.3 Laboratory test finding 12/21/2015 C Reactive Protein 1.79 mg/L < 5.00 27 Comp Metabolic Panel 12/21/2015 Sodium 138 mmol/L [...] Egfr Non- 65.8 >60 Egfr 84.6 >60 28 Laboratory test finding 09/12/2015 C Reactive Protein 2.78 mg/L < 5.00 29 Erythrocyte Sed Rate 1 mm/Hr 0-14 Comp Metabolic Panel 09/12/2015 Sodium 136 mmol/L [...] Egfr Non- 77.0 >60 Egfr 99.0 >60 30 CBC Auto Diff 09/12/2015 White Blood Count [...] 0-2 Nucleated Red Blood Cells % 0 Laboratory test finding 08/11/2015 Elyssa Screen Negative Negative 31 Cytoplasmic Neutrophilic AB 08/11/2015 C-Anca Negative Negative P-Anca Negative Negative 32 Quantiferon Gold TB 08/11/2015 M tuberculosis by Quantiferon Negative Negative Tuberculosis Antigen Value 0.01 IU/mL 33 Hepatitis Acute Panel 08/11/2015 Hepatitis C Antibody Nonreactive Nonreactive Hepatitis A AB Igm Nonreactive Nonreactive Hepatitis B Core AB Igm Nonreactive Nonreactive Hepatitis B Surface Ag Nonreactive Nonreactive Laboratory test finding 08/11/2015 Rheumatoid Factor <15 IU/mL <15 34 Cyclic Citrullinated Pep Igg <15.6 U 35 Uric Acid 7.9 mg/dL High 4.4-7.6 Hla B27 08/11/2015 Hla B27 Negative 36 Hla B27 Interp See Comment 37 Laboratory test finding 08/11/2015 C Reactive Protein 3.20 mg/L < 5.00 38 Erythrocyte Sed Rate 4 mm/Hr 0-14 Comp Metabolic Panel 08/11/2015 Sodium 138 mmol/L [...] Egfr Non- 77.0 >60 Egfr 99.0 >60 39 CBC Auto Diff 08/11/2015 White Blood Count [...] 0-2 Nucleated Red Blood Cells % 0.2 1 Because ethnic data is not always [...] PRN VALID 05/22/16-11/19/16 Q 4 WEEKS 17 Acute inflammation: >10.00 18 PRN VALID 05/22/16-11/19/16 Q 4 WEEKS 19 Because ethnic data is not always readily [...] 15-29 5 Kidney failure <15 (or dialysis) 20 standing order q 4 weeks 21 Acute inflammation: >10.00 22 Because ethnic data is not always readily [...] 15-29 5 Kidney failure <15 (or dialysis) 23 standing order q 4 weeks 24 Acute inflammation: >10.00 25 PRN VALID 12/22/15-06/22/16 Q 4 WEEKS 26 Because ethnic data is not always readily [...] 15-29 5 Kidney failure <15 (or dialysis) 27 Acute inflammation: >10.00 28 Because ethnic data is not always readily [...] 15-29 5 Kidney failure <15 (or dialysis) 29 Acute inflammation: >10.00 30 Because ethnic data is not always readily [...] 15-29 5 Kidney failure <15 (or dialysis) 31 The above ELYSSA screen is designed for the detection of antibodies to extractable nuclear antigen (ELYSSA) in human serum. It is a combination test for the detection of antibodies to REPATCHER, Sm, SS-A (Ro), and SS-B (La) nuclear antigens. 32 Negative for cANCA and pANCA patterns by immunofluorescence. Test Performed by: [address] [address] Cook Fishing Vessel: Al Leo II, M.D., Ph.D. 33 ADDITIONAL INFORMATION This is a qualitative test. [...] when interpreting QuantiFERON-TB results. Test Performed by: [place] [address] Cook Fishing Vessel: Al Leo II, M.D., Ph.D. 34 Test Performed by: [place] [address] Cook Fishing Vessel: Al Leo II, M.D., Ph.D. 35 REFERENCE VALUE <20.0 (Negative) Test Performed by: [place] [address] Cook Fishing Vessel: Al Leo II, M.D., Ph.D. 36 REFERENCE VALUE Not Applicable 37 RESULT: HLA-B27 antigen was not detected. ADDITIONAL INFORMATION Method: Flow Cytometry Performing Laboratory IA# [id number] Test Performed by: [place] [address] Cook Fishing Vessel: Al Leo II, M.D., Ph.D. 38 Acute inflammation: >10.00 39 Because ethnic data is not always readily [...] 15-29 5 Kidney failure <15 (or dialysis) Procedures Description No Information Encounters Type Date Location Provider CPT E/M Dx Office Visit 04/11/2018 [facility] Jewels Lynne M.D. 92839 M25.551 9:30a Of [facility] M25.552 M16.0 L40.0 L40.59 M16.12 Office Visit 03/17/2018 11:00a [facility] Of Jewels Lynne M.D. 17395 M25.551 C.[facility].A. M25.552 M16.0 M25.541 R22.31 Office Visit 03/03/2018 10:30a [facility] [place] [address] L40.59 [facility]ENNEL OPER[facility] L40.0 M25.559 G89.4 M10.9 Z79.899 M25.551 M25.552 Office Visit 10/08/2017 11:00a [facility] [place] [address] L40.59 Of [facility] L40.0 G89.4 Z13.1 Z13.220 K13.21 M10.9 Z79.899 Office Visit 07/26/2017 8:00a [facility] [place] [address]21 L40.59 Of [facility] L40.0 M25.541 K13.21 M10.9 Z79.899 G89.4 Office Visit 05/17/2017 11:00a [facility] [place] [address]6311 L40.59 Of [facility] L40.0 M16.0 Z79.899 E79.0 K13.21 Z23 Office Visit 03/18/2017 2:00p [facility] [place] [address] L40.59 [facility] KENNEL OPERATOR L40.0 M10.9 G47.33 G89.4 R79.89 Z79.899 E66.9 Office Visit 12/07/2016 2:30p [facility] [place] [address] L40.59 Of [facility] L40.0 M10.9 G89.4 R79.89 Z79.899 Office Visit 10/05/2016 3:00p [facility] [place] [address]481 L40.59 Of [facility] L40.0 M10.9 M25.561 R79.89 Z79.899 Office Visit 07/17/2016 9:00a [facility] [place] [address]641 L40.59 Of [facility] L40.0 M10.9 Z79.899 E66.9 Office Visit 07/02/2016 2:45p [facility] Of Dashawn Walker M.D. 27047 L40.59 C.[facility]A. Office Visit 05/22/2016 10:00a [facility] Of Ramanbismark Byrd 64028 L40.59 [facility] AL L40.0 M25.551 M25.552 E66.9 E79.0 Z79.899 Z23 Office Visit 03/26/2016 1:30p [facility] Of Dashawn Walker M.D. 95326 M25.551 C.M.A. M13.852 Office Visit 03/07/2016 11:00a [facility] [place] [address]505 L40.59 Of [facility] L40.0 M25.552 M25.551 R79.89 D69.6 E66.9 Z79.899 Z23 Office Visit 01/11/2016 9:00a [facility] Of Dashawn Walker M.D. 79804 M13.852 C.M.A. M25.552 Office Visit 01/04/2016 11:00a [facility] Services Ramanjosejania RodriguesAL patino 77450 L40.59 Of [facility] L40.0 R74.0 M25.559 Z79.899 E66.9 M25.552 M25.551 Office Visit 10/06/2015 10:00a [facility] Services Horacio Arredondo 20758 L40.59 Of [facility] Rene L40.0 Z79.899 R74.0 Office Visit 08/11/2015 11:00a [facility] Services Horacio Arredondo, 99538 L40.59 Of [facility] Rene Z23 L40.0 Z79.899 R74.0 H93.13 Plan of Care Future Appointment(s):07/07/2018 9:00 am - AL Champion at [facility]-Jewovxgmd19/27/2018 11:30 am - Maximiliano Jones PA-C at [facility].05/22/2018 11:30 am - CHEKO Castle at [facility].05/08/2018 3:20 pm - Caleb Arredondo M.D. at [facility] - [address]05/22/2018 11:30 am - Jewels Lynne M.D. at [facility].05/12/2018 9:30 am - Jewels Lynne M.D. 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
--- OUTSIDE RECORDS SUMMARY | 2018-05-22 10:02 | XMS REPORT ---
:1975 External Reference #:[id number] Author Organization [facility] [employer] Address [address] [place] [address] Phone [phone] Care Team Providers Name Role Phone Caleb Arredondo MD Primary Care Physician Unavailable Payers Type Date Identification Numbers Payment Provider Subscriber Commercial Policy Number: [id number] [employer] Niall E Govind PayID: [id number] [address] [address] [place] [address] Commercial Expires: 2018 Policy Number: [place] Medicaid Niall Campos Govind [id number] PayID: [id number] [address] [address] [place] [address] Problems Date Description Provider Status Onset: 08/11/2015 [...] Type Date Description Comments 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 [employer] Use Rarely consumes alcohol [...] 1 by mouth M10.9 s every day [facility], [facility] Simponi 03/07 Active Solution 50mg/0.5M 1.5un on hold until L40.59 Auto-Inje L its after [facility], ct surgery-----inj GEOSPATIAL ENGINEER ect 50mg subcutaneously once monthly Hydrocodone-Ac 00 Active Tablets 5-325mg Take 1 Tablet Unknown etaminophen /0000 Every 6 Hours as Needed For Pain Allopurinol 03/04 Hx Tablets 100mg take three tabs M10.9 daily [facility], - GEOSPATIAL ENGINEER 05/05 Bupropion HCL 07/26 Hx Tablets 150mg 30tab 1 by mouth G89.4 Zsofia ER (SR) /2016 ER 12HR s every day [facility], - GEOSPATIAL ENGINEER 03/16 Sulfasalazine 05/17 Hx Tablets 500mg 90tab take 1 tablet L40.59 s by mouth twice [facility], - a day GEOSPATIAL ENGINEER 03/16 Allopurinol 05/17 Hx Tablets 300mg 90tab 1 by mouth M10.9 ofi s every day in [facility], - additon to 100 GEOSPATIAL ENGINEER / mg/day tab Allopurinol 05/17 Hx Tablets 100mg 90tab 1 by mouth M10.9 Zsofi s every day in [facility], - addition to 300 GEOSPATIAL ENGINEER 07/10 mg tab /2017 Bupropion HCL 03/18 Hx Tablets 75mg 30tab 1 by mouth G89.4 Zsofi s every day [facility], - GEOSPATIAL ENGINEER 07/26 Duloxetine HCL 12/[address] 30mg 30cap 1 by mouth G89.4 ofi Part s every day [facility], - GEOSPATIAL ENGINEER 03/18 Allopurinol 10/05 Hx Tablets 300mg 90tab 1 by mouth M10.9 Zsofi s every day [facility], - GEOSPATIAL ENGINEER 05/17 L40.59 Allopurinol 07/17/2016 - Hx Tablets 100mg 90tabs 1 by mouth every M10.9 Zsofia 10/05/2016 day fro 4 weeks Carson, then get labs GEOSPATIAL ENGINEER and increase to 2 tabs/day Colchicine 07/17/2016 - Hx Tablets 0.6mg 12tabs take 1 tab at M10.9 Zsofia 03/03/2018 onset of gout Carson, attack, 1 tab 1 GEOSPATIAL ENGINEER hour later, may take 3rd dose 6 after last dose Methotrexate 05/22/2016 - Hx Tablets 2.5mg 36tabs 3 tbs by mouth L40.59 Zsofia 05/17/2017 every week On Carson, Hold GEOSPATIAL ENGINEER Folic Acid 05/22/2016 - Hx Tablets 1mg 90tabs 1 by mouth every Z79.899 Zsofia 05/17/2017 day (hold) Carson, GEOSPATIAL ENGINEER Voltaren 01/04/2016 - Hx Gel 1% 1tubes apply 2 grams to L40.59 ofia 03/16/2018 affected area Carson, twice a day, as GEOSPATIAL ENGINEER needed for pain Enbrel 10/06/2015 - Hx Solution 50mg/ml 4units inject L40.59 Zsofia Sureclick 03/07/2016 Auto-Injec subcutaneously Carson, t 50mg every week GEOSPATIAL ENGINEER Enbrel 08/11/2015 - Hx Solution 50mg/ml 4units [...] Code Status Date Vaccine Reaction Lot # 42053 Given 05/17/2017 Influenza Virus Vaccine, no immediate reaction [id number] Quadrivalent, Split, noted Preservative Free 00002 Given 05/22/2016 Influenza Virus Vaccine, No reaction noted [id number] Quadrivalent, Split, Preservative Free 86319 Given 03/07/2016 Pneumococcal Conjugate [id number] Vaccine 13 Valent For Intramuscular Use 81376 Given 08/11/2015 Influenza Virus Vaccine, x7yr2 Quadrivalent, [...] pANCA patterns by immunofluorescence. Test Performed by: [place] [address] Franchise Specialist: Al Leo II, M.D., Ph.D. 34 The above ELYSSA screen is designed for the detection of antibodies to extractable nuclear antigen (ELYSSA) in human serum. It is a combination test for the detection of antibodies to BUSINESS SERVICES TECH, Sm, SS-A (Ro), and SS-B (La) nuclear [...] when interpreting QuantiFERON-TB results. Test Performed by: [place] [address] Franchise Specialist: Al Leo II, M.D., Ph.D. 36 Test Performed by: [place] [address] Franchise Specialist: Al Leo II, M.D., Ph.D. 37 REFERENCE VALUE <20.0 (Negative) Test Performed by: [place] [address] Franchise Specialist: Al Leo II, M.D., Ph.D. 38 REFERENCE VALUE Not Applicable 39 RESULT: HLA-B27 antigen was not detected. ADDITIONAL INFORMATION Method: Flow Cytometry Performing Laboratory CLIA# [id number] Test Performed by: [place] [address] Franchise Specialist: Al Leo II, M.D., Ph.D. Procedures Date CPT Code Description Status 05/08/2018 03402 EKG Tracing & Interpretation Completed Encounters Type Date Location Provider CPT E/M Dx Office Visit 05/05/2018 [facility] [place] [facility] 16845 L40.59 11:30a Of Federica L40.0 M16.12 M10.9 Z79.899 Office Visit 04/11/2018 9:30a [facility] Of Jewels Lynne M.D. 84182 M25.551 C.M.A. M25.552 M16.0 L40.0 L40.59 M16.12 Office Visit 03/17/2018 11:00a [facility] Of Jewels Lynne M.D. 72384 M25.551 C.M.A. M25.552 M16.0 M25.541 R22.31 Office Visit 03/03/2018 10:30a [facility] Of Angela Byrd 00185 L40.59 Federica MELENDEZ L40.0 M25.559 G89.4 M10.9 Z79.899 M25.551 M25.552 Office Visit 10/08/2017 11:00a [facility] [place] [facility] 51657 L40.59 Of Logging Supervisor L40.0 G89.4 Z13.1 Z13.220 K13.21 M10.9 Z79.899 Office Visit 07/26/2017 8:00a [facility] Zsofia Carson, GEOSPATIAL ENGINEER 57307 L40.59 Of Logging Supervisor L40.0 M25.541 K13.21 M10.9 Z79.899 G89.4 Office Visit 05/17/2017 11:00a [facility] JAVAD ChampionP 57293 L40.59 Of Logging Supervisor L40.0 M16.0 Z79.899 E79.0 K13.21 Z23 Office Visit 03/18/2017 2:00p [facility] Of Angela Byrd 73044 L40.59 Logging Supervisor[place] GEOSPATIAL ENGINEER L40.0 M10.9 G47.33 G89.4 R79.89 Z79.899 E66.9 Office Visit 12/07/2016 2:30p [facility] [place] [facility] 73520 L40.59 Of Logging Supervisor L40.0 M10.9 G89.4 R79.89 Z79.899 Office Visit 10/05/2016 3:00p [facility] Angela Byrd GEOSPATIAL ENGINEER 00797 L40.59 Of Logging Supervisor L40.0 M10.9 M25.561 R79.89 Z79.899 Office Visit 07/17/2016 9:00a [facility] Angela Byrd GEOSPATIAL ENGINEER 92359 L40.59 Of Logging Supervisor L40.0 M10.9 Z79.899 E66.9 Office Visit 07/02/2016 2:45p [facility] Of Dashawn Walker M.D. 26406 L40.59 C.M.A. Office Visit 05/22/2016 10:00a [facility] Of Angela Byrd 66187 L40.59 Logging Supervisor GEOSPATIAL ENGINEER L40.0 M25.551 M25.552 E66.9 E79.0 Z79.899 Z23 Office Visit 03/26/2016 1:30p [facility] Of Dashawn Walker M.D. 04090 M25.551 C.M.A. M13.852 Office Visit 03/07/2016 11:00a [facility] Angela Byrd GEOSPATIAL ENGINEER 50665 L40.59 Of Logging Supervisor L40.0 M25.552 M25.551 R79.89 D69.6 E66.9 Z79.899 Z23 Office Visit 01/11/2016 9:00a [facility] Of Dashawn Walker M.D. 60334 M13.852 C.M.A. M25.552 Office Visit 01/04/2016 11:00a [facility] [place] [facility] 67847 L40.59 Of [facility] L40.0 R74.0 M25.559 Z79.899 E66.9 M25.552 M25.551 Office Visit 10/06/2015 10:00a [facility] Services Horacio Arredondo, 68406 L40.59 Of Erika López L40.0 Z79.899 R74.0 Office Visit 08/11/2015 11:00a [facility] Horacio Arredondo, 38112 L40.59 Of [facility] Rene Z23 L40.0 Z79.899 R74.0 H93.13 Plan of Care Future Appointment(s):07/07/2018 9:00 am - [facility] at [facility]05/22/2018 11:30 am - Maximiliano Jones PA-C at [...]
[2018-05-22] MEDS ORDERED: ceFAZolin 2 GM in NS PREMIX(*) 2 GM/100 ML BAG IVPB ONE (10:08)
[2018-05-22] MEDS ORDERED: Sodium Citrate/Citric Acid* 15 ML UDC ONE (10:08)
[2018-05-22] MEDS ORDERED: Midazolam* 1 MG/ML 5 ML VIAL (5 MG) ONE (10:50)
[2018-05-22] MEDS ORDERED: Bupivacaine 0.5% SDV PF* 30ML VIAL ONE (11:51)
[2018-05-22] MEDS ORDERED: Lidocaine 2% PF * 5 ML VIAL ONE (11:51)
[2018-05-22] MEDS ORDERED: Propofol* 10 MG/ML 20 ML BTL IV PUSH ONE ×2 (11:51→14:46)
[2018-05-22] MEDS ORDERED: Midazolam* 1 MG/ML 2 ML VIAL (2 MG) ONE ×2 (12:00→13:17)
[2018-05-22] MEDS ORDERED: fentaNYL* 50 MCG/ML 2 ML VIAL (100 MCG VIAL) ONE (13:14)
[2018-05-22] MEDS ORDERED: Ondansetron INJ* 2 MG/ML VIAL IV PRN (14:53)
[2018-05-22] MEDS ORDERED: Magnesium Hydroxide LIQ* 30 ML UDC PO PRN (14:53)
[2018-05-22] MEDS ORDERED: Ondansetron ODT TAB* 4 MG PO PRN (14:53)
[2018-05-22] MEDS ORDERED: Cyclobenzaprine TAB* 10 MG PO PRN (14:53)
[2018-05-22] MEDS ORDERED: diPHENhydraMINE IV* 50 MG/ML 1 ml VIAL (BENADRYL) IV PRN (14:53)
[2018-05-22] MEDS ORDERED: oxyCODONE/Acetamin 5/325 MG* TAB PO PRN (14:53)
[2018-05-22] MEDS ORDERED: Acetaminophen TAB* 325 MG PO PRN (14:53)
[2018-05-22] MEDS ORDERED: diPHENhydraMINE PO* 25 MG PO PRN (14:53)
[2018-05-22] MEDS ORDERED: Naloxone* 0.4 MG/ML 1 ML VIAL IV PRN (15:32)
--- NOTE | 2018-05-22 15:44 | RAD ---
Indication: Hip replacement. Comparison: May 04, 2018 Technique: Crosstable AP RIGHT lateral decubitus view LEFT hip 1335 hours. Report: Acetabular prosthetic component in place. Femur test fit/reamer device in place. No periprosthetic fracture evident. Overlying soft tissue edema and subcutaneous emphysema. IMPRESSION: #. Intraoperative control film.
--- NOTE | 2018-05-22 16:23 | PN ---
Progress Note - Progress Note Date of Service: 05/22/18 Note: POD 0 s/p left total hip arthroplasty patient is feeling well without complaint of chest pain, shortness of breath, nausea or dizziness. He is able to DF/PF, sensation is intact distally, DP2+, Calves are supple and nontender. His pain level is currently tolerable without request for any changes in pain medication. He is tolerating eating crackers and drinking water.
--- NOTE | 2018-05-22 16:30 | RAD ---
Indication: Post LEFT total hip arthroplasty without complication. Comparison: Intraoperative exam of the same date. Technique: AP pelvis and AP and crosstable lateral views LEFT hip and proximal femur. Report: LEFT total hip prosthesis in place with normal alignment. No periprosthetic fracture evident. Overlying soft tissue swelling and subcutaneous emphysema. IMPRESSION: #. Unremarkable immediate postop appearance following LEFT total hip replacement.
[2018-05-22] MEDS: oxyCODONE/Acetamin 5/325 MG* TAB PO PRN ×2 (16:53→22:32)
[2018-05-22] MEDS ORDERED: Warfarin TAB(*) 6 MG PO ONE (17:00)
[2018-05-22] MEDS: Morphine VIAL* 4 MG/ML VIAL (1 ml vial) IV PRN ×2 (18:03→20:08)
[2018-05-22] MEDS: ceFAZolin 1 GM in Dextrose (*) 1 GM/50 ML BAG IVPB SCH (18:09)
[2018-05-22] MEDS: oxyCODONE TAB* 5 MG TAB PO PRN (20:07)
[2018-05-22] MEDS: Docusate CAP* 100 MG PO SCH (20:07)
[2018-05-22] MEDS: Magnesium Hydroxide LIQ* 30 ML UDC PO SCH (20:08)
[2018-05-23] MEDS: Morphine VIAL* 4 MG/ML VIAL (1 ml vial) IV PRN (00:42)
[2018-05-23] MEDS: oxyCODONE TAB* 5 MG TAB PO PRN ×4 (00:43→18:24)
[2018-05-23] MEDS: ceFAZolin 1 GM in Dextrose (*) 1 GM/50 ML BAG IVPB SCH ×2 (02:13→11:29)
[2018-05-23] MEDS: oxyCODONE/Acetamin 5/325 MG* TAB PO PRN ×4 (05:20→21:44)
[2018-05-23 06:16] LABS: Hematocrit 32 % (42-52); Hemoglobin 11.3 g/dl (14.0-18.0); Mean Platelet Volume 8.7 um3 (7.4-10.4); Platelet Count 133 10^3/ul (150-450)
[2018-05-23 06:20] LABS: INR 1.21 (0.77-1.02)
[2018-05-23 06:32] LABS: EGFR Non-African American 95.3 (>60)
[2018-05-23] MEDS: Morphine TAB Extended Release (*) 30 MG TAB.ER PO SCH ×2 (08:39→21:44)
[2018-05-23] MEDS: Docusate CAP* 100 MG PO SCH ×2 (08:40→21:45)
[2018-05-23] MEDS: Magnesium Hydroxide LIQ* 30 ML UDC PO SCH ×2 (08:41→21:45)
[2018-05-23] MEDS: Allopurinol TAB* 300 MG PO SCH (08:41)
--- NOTE | 2018-05-23 09:38 | PN ---
Progress Note - Progress Note Date of Service: 05/23/18 SOAP: Subjective: POD #1 Left HORTENCIA. C/o a lot of pain in hip. Denies CP/SOB, n/v, f/c. Objective: Vital Signs: Temp Pulse Resp BP Pulse Ox 98.1 F 104 16 130/72 97 05/23/18 07:43 05/23/18 07:43 05/23/18 08:40 05/23/18 07:43 05/23/18 07:43 Gen: A&Ox3, NAD at rest laying in bed Left Hip: Dressing C/D/I, thigh soft with ttp. Calf soft, NT. +f/e at ankle and MTPs. N/V intact Labs: Laboratory Results - last 24 hr 05/23/18 05/23/18 05/23/18 05:52 05:52 05:52 Hgb 11.3 L Hct 32 L Plt Count 133 L MPV 8.7 INR (Anticoag Therapy) 1.21 H Sodium 137 Potassium 3.5 Chloride 104 Carbon Dioxide 26 Anion Gap 7 BUN 15 Creatinine 0.87 Est GFR ( Amer) 115.3 Est GFR (Non-Af Amer) 95.3 BUN/Creatinine Ratio 17.2 Glucose 140 H Calcium 7.9 L Assessment: POD #1 Left HORTENCIA Plan: Increase pain medication to add long acting opioid INR 1.21, Coumadin 6mg tonight PT/OT with posterior hip precautions
--- NOTE | 2018-05-23 10:53 | OP ---
OPERATIVE REPORT: DATE OF OPERATION: 05/22/18 DATE OF : 71 ATTENDING SURGEON: Jewels Lynne MD BRICK BURNER: CHEKO Marquez Mr. Jones did help throughout the procedure with preparation of the leg, wound retraction, manipulat ion of the hip, and wound closure. ANESTHESIOLOGIST: Dr. Canela. ANESTHESIA: Spinal. PRE-OP DIAGNOSIS: Severe end-stage degenerative osteoarthritis of the left hip joint secondary to ps oriatic arthritis. POST-OP DIAGNOSIS: Severe end-stage degenerative osteoarthritis of the left hip joint secondary to p soriatic arthritis. OPERATIVE PROCEDURE: Left total hip arthroplasty. INDICATIONS: Mr. Faust has experienced years of increasingly severe left hip pain. He has diagnosis of inflammatory arthritide, specifically arthritis. Plain films and MRI showed advanced arthritis. He failed conservative treatment with antiinflammatories, pain medication, intra-articular injection, and physical therapy. He began to have difficulty ambulating without a cane. Due to continued pain and decreased quality of life, he elected to undergo left total hip arthroplasty. Informed consent was obtained from the patient. He understood the risks of surgery included, but wer e not limited to bleeding, infection, damage to nearby structures, continued pain, need for further s urgery, intraoperative fracture, nerve palsy, hardware failure or loosening, dislocation, leg length discrepancies, stroke, heart attack, blood clot, and . He wished to proceed. INTRAOPERATIVE FINDINGS: Intraoperatively, the patient was noted to have severe end-stage arthritis with a large amount of synovitis around the capsule. He had minimal labrum remaining. He had full-t hickness loss of cartilage along the femoral head and acetabulum. COMPLICATIONS: None. ESTIMATED BLOOD LOSS: 300 cc. SPECIMEN: Femoral head and acetabular reaming sent to pathology. HARDWARE USED: This is uncemented Bristol total hip arthroplasty hardware. For the cup, a Tritanium 58F cluster hole shell with a single 20-mm screw. For the insert, a 36F 0-degree Trident X3 polyeth ylene liner. For the stem, an Accolade TMZF size 4 with a 127-degree neck. For the head, a 36 -5 V4 0 delta Biolox ceramic femoral head. DESCRIPTION OF PROCEDURE: Mr. Faust was identified in the preanesthesia unit. His left lower extrem ity was marked as the correct operative side. Informed consent was signed and placed in the chart. The patient was taken to the operating room and placed under spinal anesthesia. A Shirley catheter was placed. He was placed in the right lateral decubitus position on the pegboard and all bony prominen jesse were well padded. Left lower extremity was prepped and draped in the usual sterile fashion. Pre op time-out was made to correctly identify the patient, side, and site. Appropriate perioperative an tibiotics were given within 1 hour of incision. A standard posterior hip incision was made with a 10-blade and carried down to the lateral fascial la susan. Lateral fascial layer was incised in line with the skin incision. The piriformis and conjoint tendons were elevated off the posterolateral femur using electrocautery and tagged with #5 Ethibond. Next, electrocautery was used to make a standard posterolateral capsular flap and this was also tagg ed with #5 Ethibond. The hip was carefully dislocated. Lesser troch to center of the femoral head m easured 58 mm. Oscillating saw was used to make the appropriate femoral neck cut. The femoral head was carefully removed. The femur was retracted anteriorly. After appropriate placement of retractors, the acetabulum was we ll visualized. There was very little remaining labrum. Long- handled knife was used to sharply janusz ve any remaining labrum from the acetabular rim. The acetabulum was sequentially reamed up to a size 57. 57 reamer had a bleeding subchondral bone bed. 57 trial was impacted into the acetabulum and h ad excellent fit. Final implant chosen was a 58F Tritanium cluster hole shell. This was impacted in to the acetabulum. There was good stability. There was appropriate adduction, angle, and anteversio n. A single 20-mm screw was placed in the superoposterior quadrant for extra stability. Liner chose n was a 36F 0-degree Trident X3 polyethylene liner. This was impacted into the acetabulum without di fficulty. Stability of the liner was checked and rechecked and noted to be stable. Next, attention was turned to preparation of the femoral canal. A canal finder was used to enter the proximal femur. The femoral canal was sequentially broached up to a size 4. Size 4 broach had good fit and appropriate anteversion. A 127-neck trial and a 36 +0 head trial was chosen. Lesser troch to center of the femoral neck measurement was at 64 mm; therefore a -5 head was chosen. Lesser troch to center of the femoral head measured 59 mm. The hip was reduced and taken through range of motion . The hip was stable in all positions. There was good soft tissue tension and appropriate leg lengt hs. The hip was carefully dislocated. All trials were removed. Final implant chosen was an Accolad e TMZF size 4 with 127-degree neck angle. This was impacted into the femoral canal without difficult y. Femoral stem was stable and femoral canal with appropriate anteversion. A 36 -5 Biolox delta cer amic V40 femoral head was chosen. This was placed onto the femoral neck. The hip was reduced and malik en through range of motion. The hip was stable in all positions. Soft tissue tension and leg length s were deemed to be appropriate. The hip was copiously irrigated with sterile saline. Previously ta gged tendons and capsule were reapproximated to the posterolateral femur through 2 trochanteric drill holes. The fascial layer was closed using interrupted #1 Vicryls. The rest of the incision was jillian sed in a layered fashion using 0 and 2-0 Vicryls. Skin was closed using running 3-0 Monocryl and Clinton mabond. Sterile Adaptic, 4x4s, and paper tape were used to cover the incision. The patient's anesth esia was reversed without difficulty. He was taken to the PACU in stable condition. Intended weight bearing will be weightbearing as tolerated. Intended DVT prophylaxis will be Coumadin with a Lovenox bridge. [id number]/[facility] #: [id number]
[2018-05-23] MEDS: Enoxaparin(*) 40 MG/0.4 ML SYR SUBCUT SCH (11:36)
[2018-05-23] MEDS ORDERED: Warfarin TAB(*) 6 MG PO SCH (17:00)
[2018-05-24] MEDS: oxyCODONE TAB* 5 MG TAB PO PRN ×2 (00:33→11:21)
[2018-05-24] MEDS: oxyCODONE/Acetamin 5/325 MG* TAB PO PRN ×2 (03:24→07:24)
[2018-05-24 05:38] LABS: Hematocrit 31 % (42-52); Hemoglobin 10.7 g/dl (14.0-18.0); Mean Platelet Volume 8.8 um3 (7.4-10.4); Platelet Count 128 10^3/ul (150-450)
[2018-05-24 05:48] LABS: INR 1.7 (0.77-1.02)
[2018-05-24] MEDS: Morphine TAB Extended Release (*) 30 MG TAB.ER PO SCH (07:24)
[2018-05-24] MEDS: Magnesium Hydroxide LIQ* 30 ML UDC PO SCH (09:04)
[2018-05-24] MEDS: Docusate CAP* 100 MG PO SCH (09:05)
[2018-05-24] MEDS: Allopurinol TAB* 300 MG PO SCH (09:05)
--- NOTE | 2018-05-24 09:51 | PN ---
Progress Note - Progress Note Date of Service: 05/24/18 SOAP: Subjective: Pt. is alert, nad, feels ready to go home. Objective: Vital Signs: Temp Pulse Resp BP Pulse Ox 98.4 F 99 20 114/69 95 05/24/18 07:36 05/24/18 07:36 05/24/18 09:04 05/24/18 07:36 05/24/18 08:00 Laboratory Results - last 24 hr 05/24/18 05/24/18 05:18 05:18 Hgb 10.7 L Hct 31 L Plt Count 128 L MPV 8.8 INR (Anticoag Therapy) 1.70 H LLE - dressing changed, inc c/d/i. distally soft calf and nvi. 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
--- NOTE | 2018-05-24 11:07 | DS ---
AMENDED REPORT NOW INCLUDES COSIGNER DESIGNATION - ESIGNED BEFORE ADJUSTMENT DISCHARGE SUMMARY: DATE OF ADMISSION: 05/22/18 DATE OF DISCHARGE: 05/24/18 PROVIDER: Dr. Jewels Lynne.* (DICTATED BY CHEKO SALAZAR) ADMITTING DIAGNOSIS: Severe end-stage osteoarthritis of the left hip. DISCHARGE DIAGNOSIS: Severe end-stage osteoarthritis of the left hip, status post left total hip arthroplasty. SECONDARY DIAGNOSES: 1. Psoriatic arthritis. 2. Depression. 3. Sleep apnea. HISTORY OF PRESENT ILLNESS: Mr. Faust is a 42-year-old gentleman, who has had ongoing complaints of left hip pain. He failed conservative treatment and elected to proceed with a left total hip arthroplasty. HOSPITAL COURSE: On 05/22/18, the patient was admitted to [facility] and underwent a successful left total hip arthroplasty by Dr. Lynne. He recovered briefly in the postanesthesia care unit and was transferred to the short-stay surgical unit in stable condition. On postop day 1, the patient was having a lot of difficulty with pain and long-acting opioid pain medication was added to his current regimen and he responded well to this. He was able to ambulate and participate in physical therapy. His Shirley catheter was removed, he was able to void without difficulty. His H and H was 11.3 and 32. INR was 1.2 with 6 mg of Coumadin previously. On postop day 2, the patient's pain was much more manageable and did not require any IV pain medication. He was able to again participate with physical therapy and was able to ambulate unassisted with a rolling walker. H and H was 10.7 and 31. INR was 1.7 with 6 mg of Coumadin previously. He was found stable for discharge at this time. Throughout his hospital course, vital signs remained stable and he remained afebrile. DISCHARGE CONDITION: Stable. DISCHARGE DISPOSITION: Home. DISCHARGE INSTRUCTIONS: The patient will be weightbearing as tolerated with the use of a rolling walker. He will continue his posterior hip precautions. He may shower normally on postop day 3 and wash with soap and water. He is to avoid hot tub, bath tub, or swimming pool. He will apply dry dressing as needed. He will have home visiting nurse services for physical therapy and INR checks. He will follow up with Dr. Lynne 10 to 14 days postoperatively. He will call the office with any problems or concerns. He will go directly to the emergency room with any chest pain, shortness of breath, fever greater than 101 , calf pain or swelling. DISCHARGE MEDICATIONS: 1. The patient will use morphine 15 mg extended relief p.o. b.i.d. 2. He will use Percocet 5/325 one to two tabs p.o. q.4 to 6 hours p.r.n. pain. 3. Colace 100 mg p.o. b.i.d. p.r.n. constipation. 4. Cyclobenzaprine 10 mg p.o. t.i.d. p.r.n. muscle spasm. 5. Coumadin 6 mg on 05/24/18, 4 mg on 05/25/18. He will have redraw of his INR on 05/26/18. 6. He will resume his home medications of Simponi 50 mg subcutaneous monthly. 7. Allopurinol 300 mg p.o. q.a.m. All of the patient's questions were answered to his satisfaction. He will follow up with Dr. Lynne postoperatively. CHEKO SALAZAR [id number]/[facility] #: [id number] [employer]TD[employer]iolet
[2018-05-24 11:17] VITALS: BP 119/63
[2018-05-24] MEDS: Enoxaparin(*) 40 MG/0.4 ML SYR SUBCUT SCH (11:22)
[2018-05-24] MEDS ORDERED: Bisacodyl SUPP* 10 MG SUPP PR PRN (14:53)
== END 2018-05-24 12:00 | disposition home health service (06) | DRG 301 ==
LOC: AA 09:55 → SSU 16:06
PROVIDERS: ADMIT Orthopaedic Surgery Adult Reconstructive Orthopaedic Surgery; ATTEND Orthopaedic Surgery Adult Reconstructive Orthopaedic Surgery
PROC: 0SRB04A Replacement of Left Hip Joint with Ceramic on Polyethylene Synthetic Substitute, Uncemented, Open Approach (ICD-10-PCS; principal; 2018-05-22 12:00)
DX: M16.12 Unilateral primary osteoarthritis, left hip (principal); L40.50 Arthropathic psoriasis, unspecified; F32.9 Major depressive disorder, single episode, unspecified; G47.30 Sleep apnea, unspecified; Z79.899 Other long term (current) drug therapy; Z88.8 Allergy status to other drugs, medicaments and biological substances; Z91.030 Bee allergy status; Z83.3 Family history of diabetes mellitus
CPT/HCPCS: 36415; 72170; 80048; 85014; 85018; 85049; 85610; 88304; 88311; 94760; A9270-GY; C1713; C1776; G8987-GO-CK; G8988-GO-CI; J0690; J1650; J2250; J2270; J2405; J2704; J3010